=== PATIENT | male | born 1955 | race Caucasian/White ===

== ENCOUNTER 2016-10-23 16:21 | Inpatient (IN) | payer OTHER ==
[~2016-10-23] VITALS: Ht 170.2 cm; Wt 82.6 kg
[~2016-10-23 16:21] MED LIST: BENTYL20 M1 PO; BENZONATATE100 M1 PO; CELEXA40 M1 PO; CENTRUM CHEWAB1 EACH PO; CO Q-10200 MG PO; FLEXERIL10 MG PO; FLOMAX(MONOGRA0.4 MG PO; IBUPROFEN800 M1 PO; LOPID600 MG PO; MILK OF MA400 MG/52 PO; MIRALAX17 G1 PO; MOBIC 15MG15 MG PO; MOTRIN600 MG PO; NALTREXONE50 MG PO; NASONEX17 GM NASB; PERCOCET 325 MG1 TA2 PO; PERPHENAZINE2 M1 PO; PERPHENAZINE4 MG PO; PRAVASTATIN SOD20 M2 PO; PREDNISONE10 M2 PO; PRILOSEC OTC20 M1 PO; PROAIR HFA8.5 GM INH; PROTONIX40 M3 PO; SYNTHROID50 MCG PO; TYLENOL #31 TAB PO; VITAMIN D32000 UNIT PO; VITAMIN D3400 IU PO; ZOFRAN4 M2 PO
--- NOTE | 2016-10-23 16:36 | NUR ---
PT TO ER W/ FAMILY C/C 1 DAY HX OF CHILLS, BODY ACHES, VOMITING AND DIARRHEA. TEMP IN TRIAGE 100.8. MEDICATED WITH 975 MG TYLENOL PER STANDING ORDERS
--- NOTE | 2016-10-23 17:00 | ED GENERAL ADULT ---
History of Present Illness General Chief Complaint: Nausea, Vomiting, Diarrhea Stated Complaint: NVD, BODY ACHES Source: patient, family (, DAUGHTER) Exam Limitations: poor historian Allergies Coded Allergies: strawberry (Intermediate, RASH 08/28/16) Reconcile Medications Cholecalciferol (Vitamin D3) (Vitamin D3) 2,000 UNIT CAPSULE 1 TAB PO D SUPPLEMENT (Reported) Citalopram Hydrobromide (Celexa) 40 MG TABLET PAIN CONTROL (Reported) Folic Acid/Mv,Fe,Other Min (Centrum Chewable Tablet) 0.4 MG-18 MG-3,500 UNIT TAB.CHEW VITAMIN SUPPORT (Reported) Gemfibrozil (Lopid) 600 MG TABLET HIGH CHOLESTROL (Reported) Levothyroxine Sodium (Synthroid) 50 MCG TABLET THYROID PROBLEMS (Reported) NALTREXONE HCL (Naltrexone HCl) 50 MG TAB 1 TAB PO DAILY MENTAL HEALTH ( Reported) Omeprazole Magnesium (Prilosec Otc) 20 MG TABLET.DR 1 TAB PO DAILY GERD Perphenazine 2 MG TABLET 1.5 TAB PO QPM MENTAL HEALTH (Reported) Pravastatin Sodium 20 MG TABLET HIGH CHOLESTROL (Reported) Triage Note: PT TO ER W/ FAMILY C/C 1 DAY HX OF CHILLS, BODY ACHES, VOMITING AND DIARRHEA. TEMP IN TRIAGE 100.8. MEDICATED WITH 975 MG TYLENOL PER STANDING ORDERS Triage Nurses Notes Reviewed? yes HPI: THIS PATIENT IS A 61-YEAR-OLD MALE WITH PAST MEDICAL HISTORY INCLUDING HYPERTENSION, BIPOLAR DISORDER, AND SCHIZOAFFECTIVE DISORDER WITH A RECENT DIAGNOSIS OF DIABETES NOT CURRENTLY ON ANY vacation who presented to the emergency department today accompanied by his daughter and for evaluation of general malaise. They reported that his symptoms began last night with chills and vomiting. They were unable to quantify the amount of times the patient vomited. No blood in the vomitus. The patient reported that he has been having lower abdominal pain which she was unable to describe or rate it on a pain scale. He denied any radiation of the pain. The pain is intermittent. The patient's also reported that on the way to the emergency department he seemed to be struggling to breathe. The patient's daughter reported, "the last time this happened he had pneumonia." The patient's daughter recently was diagnosed with the flu. The patient denied any chest pain, urinary symptoms, or difficulty breathing. The patient is reporting associated nausea. The patient has not seen an city mail carrier, but is scheduled to see one for his recent diagnosis of diabetes. He is not currently on any medication. (TATIANA JEAN BAPTISTE,MAURICE) Vital Signs & Intake/Output Vital Signs & Intake/Output Vital Signs Date Time Temp Pulse Resp B/P Pulse O2 O2 Flow FiO2 Ox Delivery Rate 10/24 1644 98.2 59 20 126/78 92 Nasal 2.0L Cannula 10/24 1316 94 Nasal 2.0L Cannula 10/24 1200 98.1 60 18 108/72 96 Nasal 3.0L Cannula 10/24 1005 Nasal 3.0L Cannula 10/24 0800 98.6 60 16 112/74 94 Nasal 4.0L Cannula 10/24 0800 94 Nasal 4.0L Cannula 10/24 0400 96 Nasal 3.0L Cannula 10/24 0000 100.2 62 12 104/72 94 Nasal 4.0L Cannula 10/23 2323 84 20 90/60 Nasal 2.0L Cannula 10/23 2315 94 Nasal 4.0L Cannula 10/23 2301 74 20 100/68 93 Nasal 2.0L Cannula 10/23 2250 63 20 115/70 93 Nasal 2.0L Cannula 10/23 2250 99.6 62 20 141/74 94 Nasal 2.0L Cannula 10/23 2239 20 111/57 10/23 2230 49 15 10/23 2219 56 125/70 10/23 2213 75 86/60 10/23 2151 79 18 94/60 97 Nasal 2.0L Cannula 10/23 2141 83 20 89/57 98 Nasal 2.0L Cannula 10/23 2052 95 74/50 96 10/23 2021 80/60 10/23 195 86 18 93/62 95 Nasal 2.0L Cannula 10/23 1945 99.2 96 15 113/69 94 Nasal 2.0L Cannula 10/23 1845 87 15 94/65 95 Room Air Room Air ED Intake and Output 10/24 0000 10/23 1200 Intake Total 3000 Output Total 900 Balance 2100 Intake, IV 3000 Intake, Oral 0 Output, Urine 900 Patient 180 lb Weight Past History Travel History Traveled to [place] past 21 day No Medical History Any Pertinent Medical History? see below for history Neurological: TIA EENT: NONE Cardiovascular: hypertension, hyperlipidemia Respiratory: NONE Gastrointestinal: NONE Hepatic: NONE Renal: NONE Musculoskeletal: NONE Psychiatric: bipolar disease, depression, schizo affective disorder, MANIC DEPRESSIVE Endocrine: diabetes, hypopituitarism Blood Disorders: NONE Cancer(s): NONE AUDIT PARTNER/Reproductive: NONE History of MRSA: No History of VRE: No History of CDIFF: No Surgical History Surgical History: LIPOMA RESECTION Psychosocial History Who do you live with Family What is your primary language Romansh Tobacco Use: Quit >30 days ago Family History Hx Contributory? No (MAURICE SIMPSON PA-C) Review of Systems Review of Systems Constitutional: Reports: see HPI. EENTM: Reports: no symptoms. Respiratory: Reports: see HPI. Cardiovascular: Reports: no symptoms. GI: Reports: see HPI. Genitourinary: Reports: no symptoms. Musculoskeletal: Reports: no symptoms. Skin: Reports: no symptoms. Neurological/Psychological: Reports: no symptoms. All Other Systems: Reviewed and Negative (MAURICE SIMPSON PA-C) Physical Exam Physical Exam General Appearance: well developed/nourished, no apparent distress, alert, awake Comments: Well-developed well-nourished person in no acute distress HEENT: Normal EENT exam, head normocephalic, moist mucous membranes PERRLA bilaterally Neck: Supple, no lymphadenopathy Back: Normal inspection Cardiovascular: Regular rate and rhythm with no murmurs, rubs, or gallops Respiratory: Chest nontender. No respiratory distress. Breath sounds clear to auscultation bilaterally with no wheezes, rales, rhonchi Abdomen: Soft, nontender and nondistended with normoactive bowel sounds. No peritoneal signs. No rebound or guarding Extremity: Normal and equal pulses. Neuro: Alert oriented x3, cranial nerves II through XII grossly intact. Skin: No appreciable rash on exposed skin, skin is warm and dry. Psych: Mood and affect is normal Core Measures ACS in differential dx? Yes CVA/TIA Diagnosis: No Severe Sepsis Present: No Septic Shock Present: No (MAURICE SIMPSON PA-C) Progress Differential Diagnoses I considered the following diagnoses in my evaluation of the patient: [Influenza , viral syndrome, gastroenteritis, ACS, PE, pneumonia, sepsis] Diagnostic Imaging: Viewed by Me: Radiology Read, CT Scan. Discussed w/RAD: Radiology Read, CT Scan. Radiology Impression: PATIENT: BELLA LOPEZ PRESENT AGE: 61 PATIENT ACCOUNT NO: [id number] : 55 LOCATION: [facility] ORDERING PHYSICIAN: MAURICE SIMPSON PA-C SERVICE DATE: 10/23/16 EXAM TYPE: RAD - XRY-PORTABLE CHEST XRAY EXAMINATION: XR PORTABLE CHEST CLINICAL INFORMATION: Hypoxia. Evaluate for pneumonia. COMPARISON: Multiple priors, most recent chest radiograph dated 07/08/2016. TECHNIQUE: Portable AP semiupright view of the chest was obtained. FINDINGS: There is focal airspace opacification within the peripheral right lung base. The right upper lung and left lung are clear. There is no pneumothorax or pleural effusion. The cardiomediastinal silhouette is not enlarged. The visualized osseous structures are unremarkable. IMPRESSION: Focal airspace opacification within the peripheral right lung base, which could represent pneumonia in the appropriate clinical setting. DICTATED BY : SAMUEL DAVIS MD DATE/TIME DICTATED:10/23/161815 RAILROAD CAR LOADER: KVNG DATE/TIME TRANSCRIBED:10/23/161815 CONFIDENTIAL, DO NOT COPY WITHOUT APPROPRIATE AUTHORIZATION. <Electronically signed in Other Vendor System> SIGNED BY: SAMUEL DAVIS MD 10/23/161827, PATIENT: BELLA LOPEZ PRESENT AGE: 61 PATIENT ACCOUNT NO: [id number] : 55 LOCATION: [facility] ORDERING PHYSICIAN: MAURICE SIMPSON PA-C SERVICE DATE: 10/23/16 EXAM TYPE: CAT - CT HEAD WO IV CONTRAST EXAMINATION: CT HEAD WITHOUT CONTRAST CLINICAL INFORMATION: Status post fall. Evaluate for acute intracranial hemorrhage. COMPARISON: Noncontrast head CT 01/18/2015. TECHNIQUE: Contiguous axial imaging was performed from the skull base to vertex without intravenous administration of contrast. DLP: 529 mGy-cm. FINDINGS: No acute intracranial abnormality. No acute intracranial hemorrhage, mass or mass effect or abnormal extra-axial fluid collections. The density within the dural venous sinuses is within normal limits. The ventricles are normal in size, without hydrocephalus. There are no focal areas of hypoattenuation within a vascular distribution to suggest acute transcortical ischemia. The basilar cisterns are patent. No acute calvarial abnormality is identified. Soft tissues appear unremarkable. The imaged paranasal sinuses and mastoid air cells are well aerated. IMPRESSION: No acute intracranial abnormality. DICTATED BY: GEOVANNY HAMILTON MD DATE/TIME DICTATED:10/23/161915 RAILROAD CAR LOADER:KVNG DATE/TIME TRANSCRIBED:10/23/161915 CONFIDENTIAL, DO NOT COPY WITHOUT APPROPRIATE AUTHORIZATION. <Electronically signed in Other Vendor System> SIGNED BY: GEOVANNY HAMILTON MD 10/23/161937 Initial ED EKG: none Comments: THIS PATIENT WAS OFFICIALLY SIGNED OUT TO DR. FERRARI FOR ICU ADMISSION. (TATIANA JEAN BAPTISTE,MAURICE) Plan of Care: Orders Procedure Date/time Status ICU LAB BUNDLE 10/25 0500 Active CBC WITHOUT DIFFERENTIAL 10/25 0500 Active Heart Healthy Diet 10/24 B Active C.DIFFICILE 10/24 1456 Active RT: Evaluation 10/24 1005 Active LACTIC ACID 10/24 0500 Complete ICU LAB BUNDLE 10/24 0500 Complete CBC WITHOUT DIFFERENTIAL 10/24 0500 Complete CULTURE,URINE 10/24 0431 Active SPECIMEN TO BE OBTAINED 10/24 430 Active Lab Add-on Test 10/24 0415 Active TROPONIN LEVEL 10/24 0023 Complete EKG 10/24 0023 Active Wound Care/Dressing 10/24 000 Complete Weight 10/24 000 Complete VTE Mechanical Prophylaxis 10/24 8 Active Vital Signs 10/24 8 Active Turn and Reposition 10/24 8 Complete Drains/Tubes 10/24 8 Complete Teach/Educate 10/24 8 Active Skin Integrity Protocol 10/24 8 Complete Skin/Pressure Ulcer Assess (Sk 10/24 8 Active Precautions 10/24 8 Active Pain Treatment and Response 10/24 8 Active Nutritional Intake, Monitor 10/24 8 Active Isolation 10/24 8 Active CIWA 10/24 8 Complete Patient Care Conference 10/24 8 Active Activity/Ambulation 10/24 8 Active THERAPIST ORDERS 10/24 UNK Complete OXYGEN SETUP (GEN) 10/24 UNK Complete Transfer patient to 10/24 UNK Active Pathway - chart 10/23 2257 Active House Staff 10/23 2257 Active Patient Data 10/23 225 Active STREP PNEUMO URINARY ANTIGEN 10/23 225 Complete LEGIONELLA URINARY ANTIGEN 10/23 225 Complete VRE ACTIVE SURVIELLANCE 10/23 2233 Active ACTIVE SURVEILLANCE NARES 10/23 2233 Active EKG 10/23 2151 Active Patient Data 01/29 2124 Active Add-on Test (ER Only) 10/237 Active Saline Lock 10/23 2000 Active Misc Message 10/23 2000 Active ED Holding Orders 10/23 2000 Active Code Status 10/23 2000 Active Admit to inpatient 10/23 1999 Active OXYGEN SETUP (GEN) 10/23 190 Active Saline Lock 10/23 1900 Active Admit to inpatient 10/23 1900 Active Vital Signs 10/23 1900 Active Activity/Ambulation 10/23 190 Active Code Status 10/23 1900 Complete Intake & Output 10/23 1756 Active THYROID STIMULATING HORMONE 10/23 1713 Complete FREE T4 10/23 1713 Complete FingerStick- Glucose 10/23 1709 Active PARTIAL THROMBOPLASTIN TIME 10/23 1701 Complete PROTHROMBIN TIME 10/23 1701 Complete TRC EVALUATION (GEN) 10/23 UNK Complete VTE Mechanical Prophylaxis 10/23 UNK Active Vital Signs 10/23 UNK Complete Intake & Output 10/23 UNK Complete Current Medications Sig/Armando Start time Last Medication Dose Stop Time Status Admin Perphenazine 3 MG QPM 10/240 AC (Trilafon 2 MG Tablet) Ceftriaxone Sodium 1,000 MG 10/24 CAN (Rocephin) Azithromycin 500 MG ONCE ONE 10/23 1844 CAN (Zithromax) 10/23 1943 Dextrose/Water 250 ML (D5W) Laboratory Tests 10/24/16 0440: Anion Gap 8, Estimated GFR > 60, Glucose 84, Lactic Acid 1.0, Calcium 7.5 L, Phosphorus 2.7, Magnesium 1.4 L, Total Bilirubin 0.5, AST 65 H, ALT 71, Albumin 3.0 L, CBC w Diff NO MAN DIFF REQ, RBC 3.58 L, MCV 89.3, MCH 30.3, RDW 13.6, MPV 9.8, Gran % 69.9, Lymphocytes % 18.3 L, Monocytes % 8.8, Eosinophils % 2.5, Basophils % 0.5, Absolute Granulocytes 5.4, Absolute Lymphocytes 1.4, Absolute Monocytes 0.7 H, Absolute Eosinophils 0.2, Absolute Basophils 0, PUBS MCHC 33.9 10/24/16 0045: Troponin I < 0.01 10/23/16 1911: Urine Color YEL, Urine Clarity CLEAR, Urine pH 6.0, Ur Specific [place] 1.010, Urine Protein NEG, Urine Ketones NEG, Urine Nitrite NEG, Urine Bilirubin NEG, Urine Urobilinogen 0.2, Ur Leukocyte Esterase NEG, Ur Microscopic EXAM NOT REQUIRED, Urine Hemoglobin NEG, Urine Glucose NEG Microbiology 10/24 1450 STOOL: Clostridium difficile Toxin A & B - RECD 10/24 0030 UPPER RESP: Surveillance Culture - RECD 10/24 003 GI: Surveillance Culture - RECD 10/23 2258 STOOL: Clostridium difficile Toxin A & B - CAN Cancelled: SPECIMEN NOT RECEIVED IN LABORATORY 10/23 1910 URINE ROUT: Urine Culture - RECD 10/23 1910 URINE ROUT: Legionella Antigen - COMP 10/23 1910 URINE ROUT: Streptococcus pneumoniae Antigen (M - COMP Departure Departure Disposition: STILL A PATIENT Condition: Stable Clinical Impression Primary Impression: Pneumonia Qualifiers: Pneumonia type: due to unspecified organism Laterality: right Lung location: unspecified part of lung Qualified Code: J18.9 - Pneumonia, unspecified organism Secondary Impressions: Hypotension Qualifiers: Hypotension type: unspecified hypotension type Qualified Code: I95.9 - Hypotension, unspecified Hypoxia Referrals: TESSA DUONG MD (PCP/Family) Departure Forms: Customer Survey General Discharge Information Admission Note Spoke With: SARANYA GUILLEN,[facility] Documentation of Exam: Documentation of any treatments & extenuating circumstances including Concerns Regarding Discharge (functional status, medication knowledge or non-compliance, living conditions, etc.) that warrant an admission rather than observation: [ This patient is a 61-year-old male who presented to the emergency department today for evaluation of chills and vomiting. Upon admission to the emergency department, his blood glucose level was less than 50. This patient has been hypotensive here in the emergency department. Hypoxic in the 80s on room air. Pneumonia based on chest x-ray. This patient should be admitted to the emergency department for IV fluids, blood glucose monitoring, follow up blood cultures, IV antibiotics, endocrinology consultation, possible pulmonology consultation, trend labs, repeat chest x-ray, and close monitoring. This patient is a poor candidate for outpatient treatment. Premature discharge could prove medically harmful.] (TATIANA JEAN BAPTISTE,MAURICE) PA/EXCAVATOR OPERATOR Co-Sign Statement Statement: ED Attending supervision documentation- x I saw and evaluated the patient. I have also reviewed all the pertinent lab results and diagnostic results. I agree with the findings and the plan of care as documented in the PA's/EXCAVATOR OPERATOR's documentation. [] I have reviewed the ED Record and agree with the PA's/EXCAVATOR OPERATOR's documentation. [] Additions or exceptions (if any) to the PAs/EXCAVATOR OPERATOR's note and plan are summarized below: [] (CONRAD GUILLEN,ZOILA) PA/EXCAVATOR OPERATOR Co-Sign Statement Statement: ED Attending supervision documentation- [] I saw and evaluated the patient. I have also reviewed all the pertinent lab results and diagnostic results. I agree with the findings and the plan of care as documented in the PA's/EXCAVATOR OPERATOR's documentation. [X] I have reviewed the ED Record and agree with the PA's/EXCAVATOR OPERATOR's documentation. [] Additions or exceptions (if any) to the PAs/EXCAVATOR OPERATOR's note and plan are summarized below: [] (ARMIDA FERRARI MD) Critical Care Note Critical Care Note Critical Care Time: 30-74 min (MAURICE SIMPSON PA-C) as documented in the PA's/EXCAVATOR OPERATOR's documentation. [X] I have reviewed the ED Record and agree with the PA's/EXCAVATOR OPERATOR's documentation. [] Additions or exceptions (if any) to the PAs/EXCAVATOR OPERATOR's note and plan are summarized below: [] (ARMIDA FERRARI MD) Critical Care Note Critical Care Note Critical Care Time: 30-74 min (MAURICE SIMPSON PA-C)
[2016-10-23 17:27] LABS: ABSOLUTE BASOPHIL COUNT 0 /CUMM (0.0-0.2); ABSOLUTE EOSINOPHIL COUNT 0 /CUMM (0.0-0.7); ABSOLUTE GRANULOCYTE CT 8.5 /CUMM (1.4-6.5); ABSOLUTE LYMPH COUNT 0.4 /CUMM (1.2-3.4); ABSOLUTE MONOCYTE COUNT 0.2 /CUMM (0.10-0.60); BASOPHIL % 0 % (0.0-2.0); EOSINOPHIL % 0.5 % (0-5); HEMATOCRIT 40.4 % (42-52); MEAN CORPUSCULAR HGB 29.6 PG (27.0-31.0); MEAN CORPUSCULAR HGB CONC 33.3 G/DL (33.0-37.0); MEAN CORPUSCULAR VOLUME 88.7 FL (80.0-94.0); MEAN PLATELET VOLUME 9.1 FL (7.4-10.4); PLATELET COUNT 157 /CUMM (130-400); RBC DISTRIBUTION WIDTH 13.5 % (11.5-14.5); RED BLOOD CELL CT 4.56 /CUMM (4.70-6.10); WHITE BLOOD CELL COUNT 9.2 /CUMM (4.8-10.8)
[2016-10-23 17:29] LABS: GRANULOCYTE % 92.8 % (42.2-75.2)
--- NOTE | 2016-10-23 17:32 | NUR ---
PT'S BLOOD SUGAR <50; IV EST, BLOOD WORK DRAWN AND SENT TO LAB: SST, LAV, BLUE, MICHAUD TOPS. PT PROVIDED TWO APPLE JUICES (AWAKE AND ALERT TO SWALLOW WITHOUT ASPIRATING.) DEWEY SIMPSON AWARE AND PT MEDICATED WITH AN AMP OF DEXTROSE AND ZOFRAN. WILL CONTINUE TO MONITOR.
--- NOTE | 2016-10-23 17:34 | NUR ---
PT'S DAUGHTER AND WOULD LIKE TO BE CONTACTED WITH AN UPDATE OF PT'S CARE AT PHONE NUMBER: [phone] (KANIKA)
--- NOTE | 2016-10-23 17:36 | NUR ---
FLU SWAB OBTAINED AND SENT TO LAB.
--- NOTE | 2016-10-23 18:03 | NUR ---
XRAY AT BEDSIDE.
--- NOTE | 2016-10-23 18:14 | NUR ---
FAMILY UPDATED ON PLAN OF CARE, WAITING FOR REMAINING BLOOD WORK TO COME BACK AND RADIOLOGY RESULTS.
--- NOTE | 2016-10-23 18:18 | NUR ---
PT REQUESTING TO SPEAK WITH PROVIDER. PROVIDER AWARE AND PT INFORMED THAT PROVIDER WILL BE IN IN A COUPLE OF MINUTES/ SOON SHE CAN TO SPEAK WITH PT.
--- NOTE | 2016-10-23 18:28 | RADIOLOGY REPORT ---
EXAMINATION: XR PORTABLE CHEST CLINICAL INFORMATION: Hypoxia. Evaluate for pneumonia. COMPARISON: Multiple priors, most recent chest radiograph dated 07/08/2016. TECHNIQUE: Portable AP semiupright view of the chest was obtained. FINDINGS: There is focal airspace opacification within the peripheral right lung base. The right upper lung and left lung are clear. There is no pneumothorax or pleural effusion. The cardiomediastinal silhouette is not enlarged. The visualized osseous structures are unremarkable. IMPRESSION: Focal airspace opacification within the peripheral right lung base, which could represent pneumonia in the appropriate clinical setting.
--- NOTE | 2016-10-23 18:30 | NUR ---
DEWEY SIMPSON AT BEDSIDE TO DISCUSS POC.
--- NOTE | 2016-10-23 18:51 | NUR ---
PT TO CAT SCAN VIA STRETCHER NOW.
--- NOTE | 2016-10-23 19:38 | CT SCAN REPORT ---
EXAMINATION: CT HEAD WITHOUT CONTRAST CLINICAL INFORMATION: Status post fall. Evaluate for acute intracranial hemorrhage. COMPARISON: Noncontrast head CT 01/18/2015. TECHNIQUE: Contiguous axial imaging was performed from the skull base to vertex without intravenous administration of contrast. DLP: 529 mGy-cm. FINDINGS: No acute intracranial abnormality. No acute intracranial hemorrhage, mass or mass effect or abnormal extra-axial fluid collections. The density within the dural venous sinuses is within normal limits. The ventricles are normal in size, without hydrocephalus. There are no focal areas of hypoattenuation within a vascular distribution to suggest acute transcortical ischemia. The basilar cisterns are patent. No acute calvarial abnormality is identified. Soft tissues appear unremarkable. The imaged paranasal sinuses and mastoid air cells are well aerated. IMPRESSION: No acute intracranial abnormality.
--- NOTE | 2016-10-23 19:45 | NUR ---
PT MEDICATED WITH ZITHROMAX PER EMAR. PT PROVIDED BOXED LUNCH, OKAY PER PROVIDER FOR PT TO EAT. PT TOLERATING WELL. WILL CONTINUE TO MONITOR.
--- NOTE | 2016-10-23 20:30 | NUR ---
FAMILY AND PT INFORMED WAITING THAT POC IS FOR PT TO COMPLETE FOURTH LITER OF NS BOLUS AND DEPENDING ON BP READING AFTER THIS LITER, PT WILL THEN BE REASSESSED FOR EITHER ICU OR GEN MED.
--- NOTE | 2016-10-23 20:53 | NUR ---
MAURICE PALOMO NOTIFIED OF BLOOD PRESSURE OF 74/[address] THROUGH 4TH LITER OF IVF.
--- NOTE | 2016-10-23 20:53 | NUR ---
PT REMAINS AWAKE, ALERT AND ORIENTED. IN NO OVERT DISTRESS
--- NOTE | 2016-10-23 21:10 | NUR ---
HOUSE STAFF AT BEDSIDE FOR EVAL.
--- NOTE | 2016-10-23 21:41 | NUR ---
HOUSE STAFF AT BEDSIDE FOR CENTRAL LINE PLACEMENT.
[2016-10-23 21:57] LABS: PTT 32 SEC (25-37)
--- NOTE | 2016-10-23 22:25 | NUR ---
PT TRANSPORTED TO CAT SCAN WITH THIS RN ON LACE STRIPPER. PT NOTED TO BE BRADYCARDIC WITH SINUS NERI 49-55. SERO FROM HOUSE STAFF PAGED AND INFORMED. SERO CAME TO EVALUATE PT WHO REPORTS FEELING OKAY AND OFFERS NO COMPLAINTS. PER SERO, LEVO GTT HELD AT THIS TIME. BP STABLE. WILL CONTINUE TO MONITOR.
--- NOTE | 2016-10-23 22:41 | History & Physical ---
JULIANA GUILLEN,[facility] 10/23/16 0150: General Information and HPI MD Statement: I have seen and personally examined BELLA LOPEZ and documented this H& P. The patient is a 61 year old M who presented with a patient stated chief complaint of [chills, shortness of breath]. Source of Information: patient, family, old records Exam Limitations: no limitations History of Present Illness: This is a 61-year-old gentleman with a past medical history significant for diabetes, hypertension, hypothyroidism, hyperlipidemia, major depressive disorder, previous history of alcohol use has been sober now for 5 years that presents to the emergency room today with his family with a chief complaint of chills, nausea, vomiting and diarrhea for the past 12 hours. Patient states that his daughter was diagnosed with the flu about 10 days ago and this morning he exhibited symptoms of having chills, muscle aches and pains, nausea, vomiting. Denies any chest pain, recent illnesses or any travel. It should be noted that in June 2016 patient was admitted to [facility] for aspirating a foreign object which was not identified by endoscopy. While the patient was in the emergency room he was found to be hypotensive with a systolic blood pressure in the 70s. He was given 4 L bolus of normal saline, eventually a central line was put in and levophed was initiated and his blood pressure did improve to systolic of 120s. He did also complain of lower abdominal pain and diarrhea which was nonbloody. Allergies/Medications Allergies: Coded Allergies: strawberry (Intermediate, RASH 08/28/16) Home Med list Cholecalciferol (Vitamin D3) (Vitamin D3) 2,000 UNIT CAPSULE 1 TAB PO D SUPPLEMENT (Reported) Citalopram Hydrobromide (Celexa) 40 MG TABLET PAIN CONTROL (Reported) Folic Acid/Mv,Fe,Other Min (Centrum Chewable Tablet) 0.4 MG-18 MG-3,500 UNIT TAB.CHEW VITAMIN SUPPORT (Reported) Gemfibrozil (Lopid) 600 MG TABLET HIGH CHOLESTROL (Reported) Levothyroxine Sodium (Synthroid) 50 MCG TABLET THYROID PROBLEMS (Reported) NALTREXONE HCL (Naltrexone HCl) 50 MG TAB 1 TAB PO DAILY MENTAL HEALTH ( Reported) Omeprazole Magnesium (Prilosec Otc) 20 MG TABLET.DR 1 TAB PO DAILY GERD Perphenazine 2 MG TABLET 1.5 TAB PO QPM MENTAL HEALTH (Reported) Pravastatin Sodium 20 MG TABLET HIGH CHOLESTROL (Reported) Past History Travel History Traveled to [place] past 21 day No Medical History Neurological: TIA EENT: NONE Cardiovascular: hypertension, hyperlipidemia Respiratory: NONE Gastrointestinal: NONE Hepatic: NONE Renal: NONE Musculoskeletal: NONE Psychiatric: bipolar disease, depression, schizo affective disorder, MANIC DEPRESSIVE Endocrine: diabetes, hypopituitarism Blood Disorders: NONE Cancer(s): NONE 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 Psychosocial History Where do you live? Home Who Do You Live With? spouse, child Services at Home: None Primary Language: Gibraltarian Smoking Status: Former Smoker ETOH Use: former hx of alcohol use Functional Ability ADLs Independent: dressing, eating, toileting, bathing. Ambulation: independent IADLs Independent: shopping, housework, finances, food prep, telephone, transportation , medication admin. Employment History Employment Disability Review of Systems Review of Systems Constitutional: Reports: see HPI. Exam & Diagnostic Data Last 24 Hrs of Vital Signs/I&O Vital Signs Date Time Temp Pulse Resp B/P Pulse O2 O2 Flow FiO2 Ox Delivery Rate 10/23 2238 20 111/57 10/23 2229 49 15 10/23 2218 56 125/70 10/23 2212 75 86/60 10/23 2151 79 18 94/60 97 Nasal 2.0L Cannula 10/23 2140 83 20 89/57 98 Nasal 2.0L Cannula 10/23 2052 95 74/50 96 10/23 2021 80/60 10/23 1955 86 18 93/62 95 Nasal 2.0L Cannula 10/23 194 99.2 96 15 113/69 94 Nasal 2.0L Cannula 10/23 1845 87 15 94/65 95 Room Air Room Air 10/23 1838 99.8 92 20 89/60 95 Nasal 2.0L Cannula 10/23 1821 88 15 93/58 97 Nasal 2.0L Cannula 10/23 1753 95 Room Air 2.0L 10/23 174 96 18 93 Nasal 2.0L Cannula 10/23 1743 101.2 18 91/52 90 Room Air 10/23 1649 100.8 10/23 1634 100.8 110 19 102/73 93 Room Air Physical Exam General Appearance Alert, Oriented X3, Cooperative Skin No Rashes, No Breakdown HEENT Atraumatic, PERRLA, EOMI Neck Supple, No JVD Cardiovascular Regular Rate, Normal S1, Normal S2, No Murmurs Lungs Clear to Auscultation, Normal Air Movement Abdomen Normal Bowel Sounds, Soft, No Tenderness Neurological Normal Speech, Strength at 5/5 X4 Ext, Normal Tone, Sensation Intact, Cranial Nerves 3-12 NL Extremities No Clubbing, No Cyanosis, No Edema Diagnostic Data EKG Results Rate 78, RI 184, QRS 92, QTC 456 Sinus rhythm, no change since previous tracing CXR Results IMPRESSION: Focal airspace opacification within the peripheral right lung base, which could represent pneumonia in the appropriate clinical setting. Other Results CAT scan of the head IMPRESSION: No acute intracranial abnormality. Assessment/Plan Assessment: In summary, 61-year-old gentleman with a recent sick contact that had flu, presents today with chills, shortness of breath, nausea, vomiting, one episode of diarrhea. Found to have an opacity at the right lung base consistent with pneumonia, hypotensive despite 4 L of normal saline bolus, subsequently given levophed through a central line with elevation of blood pressure in the 120s being admitted for sepsis secondary to his pneumonia. Assessment- 1. Septic shock 2/2 PNA 2. Hypotension 3. Vomiting and Diarrhea 4. Depression 5. HLD 6. Hpothyroidism 7. Bioplar disroder Plan- Admit to the ICU IV fluid resuscitation CAT scan of the chest and abdomen and pelvis Central line with levo fed starting at 5 mics an hour, maintain CVP of 12-14 Ward culture (blood culture, sputum culture, urinalysis and culture, urinary strep and Legionella antigens) We'll place on ceftriaxone and azithromycin, there is a concern for aspiration Stool culture Zofran for nausea PRN TRC evaluation and nebulizers treatment Continue all other home meds Heart healthy diet DVT prophylaxis with heparin Full code As Ranked By This Provider Problem List: 1. Hypotension Qualifiers Hypotension type: unspecified hypotension type Qualified Code: I95.9 - Hypotension, unspecified 2. Hypertension 3. Hypoxia 4. Pneumonia Qualifiers Pneumonia type: due to unspecified organism Laterality: right Lung location: unspecified part of lung Qualified Code: J18.9 - Pneumonia, unspecified organism 5. Gastroenteritis 6. Abdominal pain Core Measures/Miscellaneous Acute Coronary Syndrome ACS Diagnosis: No Cerebrovascular Accident CVA/TIA Diagnosis: No Congestive Heart Failure CHF Diagnosis: No Venous Thromboembolism VTE Risk Factors: Age > 40, Smoking VTE Prophylaxis Ordered Inpt: Pharm- Heparin No Mech VTE prophylaxis d/t: No contraindications No VTE Pharm Prophylaxis d/t: No contraindications VTE Diagnosis: No VTE Type: NONE VTE Confirmed by (Test): NONE Severe Sepsis Severe Sepsis Present: No Septic Shock Septic Shock Present: No Miscellaneous Documentation Attending Case Discussed With: ELIA BEAVER [facility] Primary Care Physician: TESSA DUONG MD Patient sees these Specialists Dr. Duong Level of Patient Care: Critical Care (CRI) Resident Review Statement Resident Statement: examined this patient, discussed with video intern MARIJA BEAVER MD 10/23/16 2256: Attending MD Review Statement Attending Statement Attending MD Statement: examined this patient, discuss w/resident/PA/POMPOM MAKER, agreed w/resident/PA/POMPOM MAKER, discussed with family Attending Assessment/Plan: 61 yo M with h/o HTN, T2DM, bipolar disorder, TIA, hypothyroidism, bradycardia in the past, major depression with psychotic features, last admitted to [facility] (Jun 2016) for foreign body aspiration, now pw chills, nausea, vomiting and nonbloody diarrhea since this morning. RLQ abdominal pain+, fever+. Denies eating outside food. Sick contact + (daughter with flu). reports that patient may have 'passed out' this AM, although he was unclear about it. Vitals: Tmax 101.2, HR 90-110, BP 102/73 --> 89/60 after 4 L NS, sats 94% on 2L. Exam: dry mucous membranes, Skin warm and dry, good capillary refill. Chest bibasilar crackles, Heart S1S2 regular, Abd soft, distended, tender right lower quadrant, BS+. Extremities no edema. Labs: WBC 9.2, bands 6, lactic acid 1.4, trop neg, UA clear. CXR: Focal airspace opacification right lung base, CT head neg, CT CAP: bibasilar atelectasis, nephrolithiasis. EKG: SR. Echo (2010): EF 55 -60%. 1. Hypoxia, severe sepsis with septic shock requiring pressors 2/2 community acquired pneumonia, although aspiration cannot be ruled out. TRC nebs, panculture, urine legionella and strep antigen, flu swab neg. Passed bedside swallow. Continue IV ceftriaxone and azithro for now. Patient remained hypotensive despite 4 L NS. Right IJ line placed and levophed initiated, titrate based on BP to keep MAP > 65. Continue maintenance IV fluids. CRCU consult in AM. Check stool studies and Cdiff if diarrhea persists. Check another EKG and troponin. Check TSH and free T4. Monitor bradycardia. 2. T2DM not on meds. Monitor accucheks. 3. Continue home meds including citalopram, perphenazine, gemfibrozil, pravastatin and levothyroxine. GI ppx - IV PPI. DVT ppx Lovenox. Full code. TTS > 45 mins
--- NOTE | 2016-10-23 22:43 | NUR ---
BED ASSIGNED 110-1
--- NOTE | 2016-10-23 23:00 | NUR ---
REPORT GIVEN TO SUJATA KLINE.
--- NOTE | 2016-10-23 23:10 | NUR ---
PT HAD BOWEL MOVEMENT OF SOFT BROWN STOOL. GUAIAC NEGATIVE.
--- NOTE | 2016-10-23 23:10 | Proc Note Internal Medicine ---
JULIANA GUILLEN,ENIO 10/23/16 2306: Medicine Procedure Procedure Date: 10/23/16 Medical Procedure(s): central venous cath place Pre-Operative Diagnosis: SEPSIS HYPOTENSION Post-Operative Diagnosis: SAME Estimated Blood Loss: scant Anesthesia: none Procedure Findings: Informed consent was obtained from the patient regarding the procedure. Risks and benefits of the procedure were explained extensively, he wished to proceed. First, a timeout was obtained, patient identifying data was checked and verified by members of the team and by myself; after the proper patient and procedure and procedural site was identified, we proceeded. The surgical area was cleaned with chlorhexidine scrub. Patient was draped in sterile fashion. Using ultrasound probe, the right internal jugular vein was isolated. 5 cc of local 1% lidocaine was used to numb the skin. Sidelinger technique used. Using a syringe the right IJ was punctured under ultrasound guidance. The syringe was again confirmed by the ultrasound. Over the syringe, guidewire was placed as a syringe was removed. Skin dilator was placed over the guidewire, a small incision was made to advance the dilator. The dilator was then removed. The 3 ports of the central line were flushed to make sure that all 3 ports were working appropriately. Over the guidewire, the central line was placed and advanced up to 15 cm. The central line was then secured by 4 anchor sutures. A Biopatch was applied. 3 hubs were applied to the central line and were flushed. A dry sterile Tegaderm was applied. Blood loss was scant, the patient handled the procedure extremely well. A CXR confirmed appropriate line placement. Dr. Saab was present during the procedure in its entiriety. SARANYA GUILLEN, [facility] 10/23/16 2310: Addendum Note Addendum Septic shock requiring pressors. Consent obtained. INR 1.14. Procedure performed without any complications. Patient tolerated the procedure well. Placement of right IJ confirmed.
--- NOTE | 2016-10-23 23:14 | CT SCAN REPORT ---
EXAMINATION: CT CHEST, ABDOMEN AND PELVIS WITHOUT CONTRAST CLINICAL INFORMATION: Shortness of breath and hypotension. Right lower quadrant abdominal pain and left lower quadrant tenderness. COMPARISON: CT abdomen and pelvis without contrast 11/29/2015. TECHNIQUE: Multidetector volumetric CT imaging of the chest, abdomen and pelvis was performed without intravenous contrast. Additional 2-D coronal and sagittal reformatted images and axial 3-D maximum intensity projection MIP images of the chest were generated on the acquisition workstation. DLP: 727 mGy-cm. FINDINGS: CHEST: THYROID: Unremarkable. LUNGS/AIRWAYS: Evaluation of the lung parenchyma demonstrates minimal dependent right basilar subsegmental atelectasis. No suspicious pulmonary nodules or masses are identified. There is no focal airspace consolidation to suggest infection. The central airways are patent, without endobronchial obstructing lesions. HEART/VESSELS: Variant anatomy of the thoracic aorta, characterized by a right-sided aortic arch. The thoracic aorta and main pulmonary artery are normal in caliber. Normal heart size, without significant pericardial effusion. MEDIASTINUM/LYMPHATICS: No significant mediastinal, hilar or axillary adenopathy. PLEURA: No pleural effusions or pneumothoraces. CHEST WALL: Unremarkable. ABDOMEN AND PELVIS: Limited evaluation of the solid abdominal viscera in the absence of intravenous contrast. LIVER, GALLBLADDER, AND BILIARY TREE: The liver is normal in size, shape, and attenuation. There is a circumscribed hypoattenuating lesion within the right hepatic lobe measuring 2.1 cm and 3 Hounsfield units. This likely reflects a small hepatic cyst. There is an additional hypoattenuating lesion within the left hepatic lobe measuring approximately 0.9 cm, too small to further characterize. This could also reflect a small hepatic cyst. No contour deforming hepatic lesions are identified and there is no appreciable intrahepatic or extrahepatic biliary ductal dilatation. The gallbladder is physiologically distended but otherwise unremarkable without gallstones, gallbladder wall thickening or pericholecystic inflammatory changes. PANCREAS: Unremarkable. SPLEEN: Unremarkable. ADRENAL GLANDS: Unremarkable. KIDNEYS AND URETERS: Evaluation of the bilateral kidneys and renal collecting systems is notable for nephrolithiasis of the bilateral kidneys. Specifically, there is a 4 mm nonobstructing stone within the upper pole of the left kidney. A 3 mm nonobstructing stone is identified within the midpole of the left kidney. Within the lower pole of the right kidney there is a punctate 1 mm nonobstructing stone. No ureteral stones are identified and there is no hydroureteronephrosis of either kidney or renal collecting system. There is nonspecific and lateral perinephric stranding. No perinephric fluid collections. BLADDER: Unremarkable. GASTROINTESTINAL TRACT: Normal anatomic orientation of the stomach relative to the duodenum. Normal caliber of abdominal and pelvic bowel loops, without evidence of obstruction or ileus. No circumferential bowel wall thickening with surrounding inflammatory changes to suggest an underlying infectious or inflammatory enterocolitis. Normal-appearing appendix within the right lower quadrant of the abdomen. Scattered colonic diverticulosis, notably involving the sigmoid colon, without secondary signs of acute diverticulitis. No organizing intra-abdominal fluid collections or free intraperitoneal air. ABDOMINAL WALL: No significant hernia is appreciated. LYMPH NODES: No significant abdominal or pelvic adenopathy. VASCULAR: Normal course and caliber of the abdominal aorta and its branching vessels, without aneurysmal dilatation. Limited evaluation for vascular patency in the absence of intravenous contrast. PELVIC VISCERA: Unremarkable. OSSEOUS STRUCTURES: No acute osseous abnormality. Normal alignment of the imaged thoracolumbar spine. No destructive osseous lesions are identified. IMPRESSION: 1. Minimal dependent bibasilar atelectasis. Otherwise, no acute findings within the chest. No focal airspace consolidation to suggest infection. 2. Variant anatomy of the thoracic aorta, characterized by a right-sided aortic arch. 3. Nephrolithiasis of the bilateral kidneys, as detailed above. No ureteral or bladder stones and no hydronephrosis of either kidney. Of note, there is mild bilateral perinephric stranding. This finding is entirely nonspecific. It could reflect an underlying infectious or inflammatory process of the bilateral kidneys such as an ascending urinary tract infection. Limited evaluation for pyelonephritis given lack of intravenous contrast. However, bilateral pyelonephritis is rare. Correlate with urinalysis and urine culture. 4. Scattered colonic diverticulosis, without secondary signs of acute diverticulitis. 5. Normal-appearing appendix within the right lower quadrant of the abdomen.
--- NOTE | 2016-10-23 23:15 | NUR ---
RECIEVED PT FROM ER. A/OX3 HURTADO. SBP 90-100'S. NSR 60-70'S. RIJ TLC IN PLACE. LEVOPHED GTT ON HOLD PER ER. IVF STARTED AT 150ML/HR VIA PERIPHERAL LINE. AWAITING XRAY CONFIRMATION ON CENTRAL LINE PLACEMENT. NC INCREASED TO 4L O2 SAT 94% LUNGS CLEAR. NO COUGH. H/H DIET. PT HAS BEEN USING URINAL. SKIN INTACT. FAMILY AT BEDSIDE
[2016-10-24] VITALS: BP 104/72
--- NOTE | 2016-10-24 | NUR ---
PT COMPLAINING OF RIJ TLC, PAIN AND HEADACHE. MD WOO MADE AWARE. PO TYENOLOL GIVEN. WILL CONT TO MONITOR
--- NOTE | 2016-10-24 00:16 | RADIOLOGY REPORT ---
EXAMINATION: CHEST 1 VIEW CLINICAL INFORMATION: Right central line placement. COMPARISON: 10/23/2016. TECHNIQUE: An AP view of the chest is provided. FINDINGS: The cardiac silhouette is not enlarged. A right central venous line is in place. The tip overlies near the confluence of the right internal jugular vein and subclavian vein. The mediastinal and hilar contours are unremarkable. There are neither pleural effusions nor pneumothoraces. There are no consolidations. The osseous structures are unremarkable. IMPRESSION: No evidence for acute disease. Right central venous line in place.
--- NOTE | 2016-10-24 00:22 | Admission Certification ---
Admission Certification Certification Statement - As attending physician, I certify that at the time of - admission, based on clinical presentation, severity of - symptoms, need for further diagnostic testing and - therapeutic interventions, and risk of adverse outcomes - without in-hospital treatment, in my clinical assessment, - this patient requires an acute hospital stay for a minimum - of two nights or longer. I have also considered psychsocial - factors such as support system, advanced age, financial - issues, cognitive issues, and failed out-patient treatments, - past re-admission history, safety of patient, and lack of - compliance as applicable. Specific rationale supporting this admission is: Septic shock, community acquired pneumonia.
[2016-10-24 05:32] LABS: ABSOLUTE BASOPHIL COUNT 0 /CUMM (0.0-0.2); ABSOLUTE EOSINOPHIL COUNT 0.2 /CUMM (0.0-0.7); ABSOLUTE GRANULOCYTE CT 5.4 /CUMM (1.4-6.5); ABSOLUTE LYMPH COUNT 1.4 /CUMM (1.2-3.4); ABSOLUTE MONOCYTE COUNT 0.7 /CUMM (0.10-0.60)
[2016-10-24 05:56] LABS: BASOPHIL % 0.5 % (0.0-2.0); EOSINOPHIL % 2.5 % (0-5); GRANULOCYTE % 69.9 % (42.2-75.2); MEAN CORPUSCULAR HGB 30.3 PG (27.0-31.0); MEAN CORPUSCULAR HGB CONC 33.9 G/DL (33.0-37.0); MEAN CORPUSCULAR VOLUME 89.3 FL (80.0-94.0); MEAN PLATELET VOLUME 9.8 FL (7.4-10.4); PLATELET COUNT 136 /CUMM (130-400); RBC DISTRIBUTION WIDTH 13.6 % (11.5-14.5); RED BLOOD CELL CT 3.58 /CUMM (4.70-6.10); WHITE BLOOD CELL COUNT 7.7 /CUMM (4.8-10.8)
[2016-10-24 08:00] VITALS: BP 112/74
--- NOTE | 2016-10-24 08:51 | Cons- CRCU ---
ARVIND GUILLEN,AMILCAR 10/24/16 0850: General Information and HPI Consulting Request Date of Consult: 10/24/16 Requested By: claudia History of Present Illness: This is a 61-year-old gentleman with a past medical history significant for diabetes, hypertension, hypothyroidism, hyperlipidemia, major depressive disorder, previous history of alcohol use has been sober now for 5 years that presents to the emergency room today with his family with a chief complaint of chills, nausea, vomiting and diarrhea for the past 12 hours. Patient states that his daughter was diagnosed with the flu about 10 days ago and this morning he exhibited symptoms of having chills, muscle aches and pains, nausea, vomiting. Denies any chest pain, recent illnesses or any travel. It should be noted that in June 2016 patient was admitted to [facility] for aspirating a foreign object which was not identified by endoscopy. While the patient was in the emergency room he was found to be hypotensive with a systolic blood pressure in the 70s. He was given 4 L bolus of normal saline, eventually a central line was put in and levophed was initiated and his blood pressure did improve to systolic of 120s. He did also complain of lower abdominal pain and diarrhea which was nonbloody. Allergies/Medications Allergies: Coded Allergies: strawberry (Intermediate, RASH 08/28/16) Home Med List: Cholecalciferol (Vitamin D3) (Vitamin D3) 2,000 UNIT CAPSULE 1 TAB PO D SUPPLEMENT (Reported) Citalopram Hydrobromide (Celexa) 40 MG TABLET PAIN CONTROL (Reported) Folic Acid/Mv,Fe,Other Min (Centrum Chewable Tablet) 0.4 MG-18 MG-3,500 UNIT TAB.CHEW VITAMIN SUPPORT (Reported) Gemfibrozil (Lopid) 600 MG TABLET HIGH CHOLESTROL (Reported) Levothyroxine Sodium (Synthroid) 50 MCG TABLET THYROID PROBLEMS (Reported) NALTREXONE HCL (Naltrexone HCl) 50 MG TAB 1 TAB PO DAILY MENTAL HEALTH ( Reported) Omeprazole Magnesium (Prilosec Otc) 20 MG TABLET.DR 1 TAB PO DAILY GERD Perphenazine 2 MG TABLET 1.5 TAB PO QPM MENTAL HEALTH (Reported) Pravastatin Sodium 20 MG TABLET HIGH CHOLESTROL (Reported) Review of Systems Review of Systems Constitutional: Denies: chills, fever, weakness. EENTM: Reports: no symptoms. Cardiovascular: Denies: chest pain, palpitations. Respiratory: Denies: cough, short of breath. GI: Reports: diarrhea. Denies: melena, nausea. Genitourinary: Reports: no symptoms. Musculoskeletal: Reports: no symptoms. Skin: Reports: no symptoms. 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 Psychosocial History Where Do You Live? Home Who Do You Live With? spouse, child Services at Home: None Primary Language: Turkish Smoking Status: Former Smoker ETOH Use: former hx of alcohol use Functional Ability ADLs Independent: dressing, eating, toileting, bathing. Ambulation: independent IADLs Independent: shopping, housework, finances, food prep, telephone, transportation , medication admin. Employment History Employment: Disability ECHO Results (as available) Date of last Echo 09/01/10 EF% 60 Exam & Diagnostic Data Last 24 Hrs of Vital Signs/I&O Vital Signs Date Time Temp Pulse Resp B/P Pulse O2 O2 Flow FiO2 Ox Delivery Rate 10/24 1644 98.2 59 20 126/78 92 Nasal 2.0L Cannula 10/24 1620 92 Nasal 2.0L Cannula 10/24 1316 94 Nasal 2.0L Cannula 10/24 1200 98.1 60 18 108/72 96 Nasal 3.0L Cannula 10/24 1005 Nasal 3.0L Cannula 10/24 0800 98.6 60 16 112/74 94 Nasal 4.0L Cannula 10/24 0800 94 Nasal 4.0L Cannula 10/24 0400 96 Nasal 3.0L Cannula 10/24 0000 100.2 62 12 104/72 94 Nasal 4.0L Cannula 10/23 2323 84 20 90/60 Nasal 2.0L Cannula 10/23 2315 94 Nasal 4.0L Cannula 10/23 2301 74 20 100/68 93 Nasal 2.0L Cannula 01/29 2250 63 20 115/70 93 Nasal 2.0L Cannula 10/23 2249 99.6 62 20 141/74 94 Nasal 2.0L Cannula 10/23 2238 20 111/57 10/23 2229 49 15 10/23 2218 56 125/70 10/23 2212 75 86/60 10/231 79 18 94/60 97 Nasal 2.0L Cannula 10/23 2140 83 20 89/57 98 Nasal 2.0L Cannula 10/23 2052 95 74/50 96 10/23 2021 80/60 10/23 195 86 18 93/62 95 Nasal 2.0L Cannula 10/23 1944 99.2 96 15 113/69 94 Nasal 2.0L Cannula Intake & Output 10/24 1600 10/24 0800 10/24 0000 Intake Total 1680 1367 3000 Output Total 300 800 900 Balance 3891 392 3030 Intake, IV 3205 606 7173 Intake, Oral 480 400 0 Number 2 0 Bowel Movements Output, Urine 300 800 900 Patient 82.611 kg 81.647 kg Weight Physical Exam General Appearance: no apparent distress, alert, awake Head: atraumatic, normal appearance Eyes: Bilateral: normal appearance, PERRL, EOMI. Ears, Nose, Throat: normal pharynx, normal ENT inspection Neck: supple Respiratory: normal breath sounds, chest non-tender Cardiovascular: regular rate/rhythm Gastrointestinal: soft, non-tender Extremities: normal inspection Last 48 Hrs of Labs/Kendall: Laboratory Tests 10/24/16 0440: Anion Gap 8, Estimated GFR > 60, Glucose 84, Lactic Acid 1.0, Calcium 7.5 L, Phosphorus 2.7, Magnesium 1.4 L, Total Bilirubin 0.5, AST 65 H, ALT 71, Albumin 3.0 L, CBC w Diff NO MAN DIFF REQ, RBC 3.58 L, MCV 89.3, MCH 30.3, RDW 13.6, MPV 9.8, Gran % 69.9, Lymphocytes % 18.3 L, Monocytes % 8.8, Eosinophils % 2.5, Basophils % 0.5, Absolute Granulocytes 5.4, Absolute Lymphocytes 1.4, Absolute Monocytes 0.7 H, Absolute Eosinophils 0.2, Absolute Basophils 0, PUBS MCHC 33.9 10/24/16 0045: Troponin I < 0.01 10/23/161910: Urine Color YEL, Urine Clarity CLEAR, Urine pH 6.0, Ur Specific [place] 1.010, Urine Protein NEG, Urine Ketones NEG, Urine Nitrite NEG, Urine Bilirubin NEG, Urine Urobilinogen 0.2, Ur Leukocyte Esterase NEG, Ur Microscopic EXAM NOT REQUIRED, Urine Hemoglobin NEG, Urine Glucose NEG 10/23/16 1713: Anion Gap 11, Estimated GFR > 60, BUN/Creatinine Ratio 15.0, Glucose 120 H, Lactic Acid 1.4, Calcium 9.0, Total Bilirubin 0.9, AST 32, ALT 48, Alkaline Phosphatase 64, Troponin I < 0.01, Total Protein 7.2, Albumin 4.1, Globulin 3.1, Albumin/Globulin Ratio 1.3, TSH 1.040, Free T4 1.36, CBC w Diff MAN DIFF ORDERED , RBC 4.56 L, MCV 88.7, MCH 29.6, RDW 13.5, MPV 9.1, Gran % 92.8 H, Lymphocytes % 4.4 L, Monocytes % 2.3, Eosinophils % 0.5, Basophils % 0 L, Absolute Granulocytes 8.5 H, Segmented Neutrophils 83 H, Band Neutrophils 6 H , Absolute Lymphocytes 0.4 L, Lymphocytes 6 L, Monocytes 3, Absolute Monocytes 0.2, Eosinophils 1, Absolute Eosinophils 0, Absolute Basophils 0, Metamyelocytes 1, Platelet Estimate ADEQUATE, Normocytic RBCs VERIFIED, Normochromic RBCs VERIFIED, PUBS MCHC 33.3 10/23/16 170: PT 12.0, INR 1.14, APTT 32 Microbiology 10/23 1910 URINE ROUT: Legionella Antigen - COMP 10/23 1910 URINE ROUT: Streptococcus pneumoniae Antigen (M - COMP Assessment/Plan Impression/Plan: This is a 60-year-old male with past medical history of diabetes, hypertension, hyperlipidemia, hypothyroidism, with recent sick contact of flu who came in with chief complaint of chills, shortness of breath, nausea, vomiting, and diarrhea. In ED chest x-ray showed opacity in right lung base, he was hypotensive despite 4 L normal saline, had central line placed, given levo fed and admitted to ICU for further management and workup. PLAN Respiratory: Stable on room air. Continue to monitor ID: Patient came in with white count 9.2, today at 7.7. He was given one dose of ceftriaxone and azithromycin for possible aspiration pneumonia as chest x-ray indicated right lower lobe opacity. However, CT of chest revealed no acute findings other than minimal dependent bibasilar atelectasis. No focal airspace consolidation, not suggestive of infection. Urine not indicative of infxn. He has been afebrile. Patient does complain of nausea, vomiting, diarrhea; likely viral gastroenteral process * Rapid flu negative. * Follow-up strep * Follow-up Legionella antigen. * Follow-up sputum culture * Follow blood culture * Follow-up urine culture * DC all antibiotics and monitor clinically CVS: Hypotension: Patient had pressures in the 70s and 80s on admission. He was given 4 L of did not seem to initially improve. Central line in place levo fed started pressure subsequently climbed up to 120s. Patient did not require pressors by the time he left the ED to come to the ICU. This a.m. anxious pressures continued to be well into the one teens. No pressors required. We pulled out central line. * Continue to monitor off pressors * Continued hydration; reevaluate in a.m. Heme oncology: Stable. Continue to monitor Musculoskeletal: Stable. Continue to monitor GI: * Vomiting and diarrhea: Etiology of patient's hypotension likely secondary to septic shock versus hypovolemic shock secondary to diarrhea and poor by mouth intake. Neuro: * Bipolar, depression. Continue home meds. Endo: * Hypothyroidism: Continue home meds. Full code Regular diet Chem DVT prophylaxis Consult Acknowledgment - Thank you for your consult request. CHANG DEUTSCH MD 10/24/16 1132: Assessment/Plan Other Findings/Comments: Chang Salas M.D. have examined this patient, reviewed available EMR data, personally reviewed images, discussed with resident/PA/ROAD ROLLER OPERATOR HOT MIX, discussed management plan with housestaff and nursing staff, discussed managment plan all of healthcare providers, discussed management plan with patient and/or family, agreed with resident/PA/ROAD ROLLER OPERATOR HOT MIX. The past history and parts of the chart have been autopopulated. Impression 61-year-old man with shock likely hypovolemic in nature. There is no obvious source of infection other than likely viral gastroenteritis. He has been off pressors and now hemodynamically stable after adequate fluid resuscitation. Feeling better overall. There is no evidence of pneumonia or urinary tract infection. Plan -Monitor off antibiotics -Follow up will cultures -Monitor white count and fevers -Off levo fed and monitor for the next few hours if does well remove central line and transferred to [facility] -DVT prophylaxis at all times Total time spent 45 minutes Consult Acknowledgment - Thank you for your consult request.
[2016-10-24 12:00] VITALS: BP 108/72
[2016-10-24 16:44] VITALS: BP 126/78
[2016-10-25 00:33] VITALS: BP 122/80
[2016-10-25 08:05] VITALS: BP 128/78
[2016-10-25 08:07] LABS: ABSOLUTE BASOPHIL COUNT 0.1 /CUMM (0.0-0.2); ABSOLUTE EOSINOPHIL COUNT 0.2 /CUMM (0.0-0.7); ABSOLUTE GRANULOCYTE CT 3.7 /CUMM (1.4-6.5); ABSOLUTE LYMPH COUNT 1.7 /CUMM (1.2-3.4); ABSOLUTE MONOCYTE COUNT 0.6 /CUMM (0.10-0.60); BASOPHIL % 0.9 % (0.0-2.0); EOSINOPHIL % 2.9 % (0-5); GRANULOCYTE % 59.5 % (42.2-75.2); HEMATOCRIT 33.2 % (42-52); MEAN CORPUSCULAR HGB 30.4 PG (27.0-31.0); MEAN CORPUSCULAR VOLUME 89.4 FL (80.0-94.0); MEAN PLATELET VOLUME 9.7 FL (7.4-10.4); PLATELET COUNT 135 /CUMM (130-400); RBC DISTRIBUTION WIDTH 13.6 % (11.5-14.5); RED BLOOD CELL CT 3.72 /CUMM (4.70-6.10); WHITE BLOOD CELL COUNT 6.2 /CUMM (4.8-10.8)
--- NOTE | 2016-10-25 08:51 | PN- Housestaff ---
FABIO GUILLEN,DYLAN 10/25/16 0851: Subjective Follow-up For: Hypotension Subjective: Patient today appears stable. No acute distress. Was eating his breakfast this morning. Denies cough, shortness of breath, chest pains, diarrhea, nausea, vomiting, abdominal pain, fever, chills. Requested is he can go home today. No overnight events reported. Review of Systems Constitutional: Reports: see HPI. Objective Last 24 Hrs of Vital Signs/I&O Vital Signs Date Time Temp Pulse Resp B/P Pulse O2 O2 Flow FiO2 Ox Delivery Rate 10/25 0805 98.5 64 20 128/78 92 Room Air 10/25 0033 97.9 51 18 122/80 95 Room Air 10/24 1644 98.2 59 20 126/78 92 Nasal 2.0L Cannula 10/24 1620 92 Nasal 2.0L Cannula 10/24 1316 94 Nasal 2.0L Cannula 10/24 1200 98.1 60 18 108/72 96 Nasal 3.0L Cannula Intake & Output 10/25 1600 10/25 0800 10/25 0000 Intake Total 840 Output Total 1025 Balance -185 Intake, IV 600 Intake, Oral 240 Output, Urine 1025 Physical Exam General Appearance: Alert, Oriented X3, Cooperative, No Acute Distress Skin: No Rashes Cardiovascular: Regular Rate, Normal S1, Normal S2 Lungs: Clear to Auscultation Abdomen: Normal Bowel Sounds, Soft, No Tenderness Extremities: No Clubbing, No Cyanosis, No Edema Current Medications: Current Medications Sig/Armando Start time Last Medication Dose Route Stop Time Status Admin Acetaminophen 650 MG .STK-MED ONE 10/245 DC PO 10/24 220 Acetaminophen 650 MG .STK-MED ONE 10/24 1708 DC PO 10/24 1709 Acetaminophen 650 MG Q6P PRN 10/23 2300 AC 10/24 PO 2207 Azithromycin 500 MG 10/24 DC Sodium Chloride 250 ML IV Ceftriaxone Sodium 1,000 MG 10/24 CAN IV Cholecalciferol 2,000 IU DAILY 10/24 1000 AC 10/25 PO 0938 Citalopram 40 MG DAILY 10/24 1000 AC 10/25 Hydrobromide PO 09 Gemfibrozil 600 MG BID 10/24 1000 AC 10/25 PO 0938 Heparin Sodium 5,000 UNIT Q8 10/23 2256 AC 10/25 (Porcine) SC 0524 Levothyroxine Sodium 0.05 MG DAILY AC 10/24 0700 AC 10/25 PO 0524 Naltrexone HCl 50 MG DAILY 10/24 1000 AC 10/25 PO 0938 Omeprazole 20 MG DAILY AC 10/24 0700 AC 10/25 PO 0524 Perphenazine 3 MG QPM 10/24 2200 AC 10/24 PO 2203 Pravastatin Sodium 20 MG DAILY 10/24 1000 AC 10/25 PO 0938 Sodium Chloride 1,000 ML ONCE ONE 10/24 1515 DC 10/24 IV 10/25 0434 1706 Sodium Chloride 1,000 ML .[id number] 10/23 2300 DC 10/24 IV 10/24 1458 1307 Last 24 Hrs of Lab/Kendall Results Last 24 Hrs of Labs/Mics: Laboratory Tests 10/25/16 0604: Anion Gap 7, Estimated GFR > 60, Glucose 107 H, Calcium 8.5, Phosphorus 2.6, Magnesium 1.7, Total Bilirubin 0.4, AST 64 H, ALT 86 H, Albumin 3.3 L, CBC w Diff NO MAN DIFF REQ, RBC 3.72 L, MCV 89.4, MCH 30.4, RDW 13.6, MPV 9.7, Gran % 59.5, Lymphocytes % 27.4, Monocytes % 9.3, Eosinophils % 2.9, Basophils % 0.9, Absolute Granulocytes 3.7, Absolute Lymphocytes 1.7, Absolute Monocytes 0.6, Absolute Eosinophils 0.2, Absolute Basophils 0.1, PUBS MCHC 34.0 Microbiology 10/24 1450 STOOL: Clostridium difficile Toxin A & B - RECD Assessment/Plan Assessment: This is a 61-year-old gentleman with a past medical history significant for diabetes, hypertension, hypothyroidism, hyperlipidemia, major depressive disorder, previous history of alcohol use has been sober now for 5 years that presents to the emergency room today with his family with a chief complaint of chills, nausea, vomiting and diarrhea for the past 12 hours Hospital course In ED chest x-ray showed opacity in right lung base, he was hypotensive despite 4 L normal saline, had central line placed, given levo fed which was later discontinued as his blood pressure stabilized. He was initially started on ceftaz and azithromycin for questionable as chest x-ray revealed light lower lobe opacity. Medications was later stopped once CAT scan came back negative for evidence of infection. He had no other source of infection including clear urine and negative blood cultures and negative Legionella and strep urinary antigens. His hypotension was attributed to diarrhea possibly vital which has resolved now. Patient did have fever which again could be because of viral etiology. Has been afebrile over the last 24 hours with normal white count all throughout his admission. We will plan to discharge the patient and he should follow-up with his primary care physician in a week upon discharge. We will continue all his other home medications including antidepressants, levothyroxin, hyperlipidemia medications Patient is tolerating this diet well today with no evidence of diarrhea. Leave note given to patient mentioning his length of stay in the hospital Problem List: 1. Hypotension 2. Gastroenteritis Pain Ratin Pain Location: No pain Pain Goal: Remain pain free Pain Plan: Not on medications Tomorrow's Labs & Rationales: Patient to be discharged today GARLAND FREDERICK MD 10/25/16 1135: Attending MD Review Statement Attending Statement Attending MD Statement: examined this patient, discuss w/resident/PA/VARNISH MIXER, agreed w/resident/PA/VARNISH MIXER, reviewed EMR data (avail), discussed with nursing, reviewed images, amended to note Attending Assessment/Plan: Patient seen and examined, feels well. Offers no complaints. Patient is afebrile with white count normal. Blood pressure is stabilized. Patient was admitted with hypotension and had likely gastroenteritis related hypotension secondary to dehydration. Symptoms have resolved and patient is hemodynamically stable. CAT scan abd was consistent with possible perinephric stranding but urine culture and urinalysis is completely negative and patient has no symptoms. Patient is medically stable for discharge home today. He will follow-up with his primary care doctor as an outpatient.
--- NOTE | 2016-10-25 10:09 | Patient Discharge Instructions ---
Acute Coronary Syndrome Inclusion Criteria At DC or during hospital stay patient has or had the following: ACS DIAGNOSIS No Discharge Core Measures Meds if any: Prescribed or Continued at Discharge Meds if any: NOT Prescribed or Continued at Discharge Congestive Heart Failure Inclusion Criteria At DC or during hospital stay patient has or had the following: CHF DIAGNOSIS No Discharge Core Measures Meds if any: Prescribed or Continued at Discharge Meds if any: NOT Prescribed or Continued at Discharge Cerebrovascular accident Inclusion Criteria At DC or during hospital stay patient has or had the following: CVA/TIA Diagnosis No Discharge Core Measures Meds if any: Prescribed or Continued at Discharge Meds if any: NOT Prescribed or Continued at Discharge Venous thromboembolism Inclusion Criteria VTE Diagnosis No VTE Type NONE VTE Confirmed by (Test) NONE Discharge Core Measures - Per Current guidelines, there needs to be overlap - treatment for the first 5 days of Warfarin therapy. - If discharged on Warfarin prior to 5 days of - overlap therapy, the patient will need to be - assessed for post discharge needs including - *Post discharge parental anticoagulation - *Warfarin and/or parental anticoagulation education - *Follow up date to check INR post discharge At least 5 days overlap therapy as Inpatient No Meds if any: Prescribed or Continued at Discharge Note: Overlap Therapy is Warfarin and Anticoagulant Meds if any: NOT Prescribed or Continued at Discharge
--- NOTE | 2016-11-01 10:48 | Discharge Summary ---
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 Vitals: Tmax 101.2, HR 90-110, BP 102/73 --> 89/60 after 4 L NS, sats 94% on 2L Labs: WBC 9.2, bands 6, lactic acid 1.4, trop neg, UA clear. CXR: Focal airspace opacification right lung base, CT head neg, CT CAP: bibasilar atelectasis, nephrolithiasis. EKG: SR. Echo (2009): EF 55-60%. Hospital course 1. Hypoxia/severe sepsis with septic shock 2/2 Patient was admitted to ICU.Right IJ line was placed and started on pressors in the ED.. Pateint was farfan cultured and started on ceftriaxone and azithromycin for community acquired PNA as chest x-ray indicated right lower lobe opacity. His blood pressure stabilised very quickly and pressors were discontinued. Rapid flu on admission was negative. Patients vitals stabilized in less then 24 hrs. He was transferred out to general medical floor. Antibiotics were discontinued as CT chest did not show evidence of infection. Abx was later stopped once CAT scan came back negative for evidence of infection. He had no other source of infection including, urine clear and negative blood cultures, negative Legionella and strep urinary antigens. His hypotension was attributed to diarrhea possibly which has resolved. Patient did have fever which again could be because of viral etiology. Has been afebrile over the last 24 hours with normal white count all throughout his admission. Patient is tolerating this diet well with no evidence of diarrhea. Was recommended to follow up with PCP in a week upon discharge. He was instucted to return to ED if symptoms resumes. Leave note given to patient mentioning his length of stay in the hospital He was continued on all his other home medications including Pravastatin, Citalopram, Levothyroxine, Gemfibrozil Allergies: Coded Allergies: strawberry (Intermediate, RASH 08/28/16) Disposition Summary Disposition Principal Diagnosis: 1. Hypovolemic shock requiring short duration of pressors with unknown etiology . Additional Diagnosis: HTN HLD Bipolar disorder DM Hypothyroidism Discharge Disposition: home or self care Discharge Instructions General Discharge Information Code Status: Full Code Patient's Diet: Diabetic diet Patient's Activity: As tolerated Follow-Up Instructions/Appts: 1. Follow up with PCP in a week upon discharge Medications at Discharge Discharge Medications: Continue taking these medications: Gemfibrozil (Lopid) 600 MG TABLET 1 Tablet ORAL Every Day Comments: Last Taken: 10/25/16 Time: 0900AM Folic Acid/Mv,Fe,Other Min (Centrum Chewable Tablet) 0.4 MG-18 MG-3,500 UNIT TAB.CHEW 1 Tablet ORAL Every Day Comments: not taken in hospital NALTREXONE HCL (Naltrexone HCl) 50 MG TAB 1 Tablet ORAL DAILY Qty = 30 Citalopram Hydrobromide (Celexa) 40 MG TABLET 1 Tablet ORAL Every Day Comments: Last Taken: 10/25/16 Time: 0900AM Pravastatin Sodium (Pravastatin Sodium) 20 MG TABLET 1 Tablet ORAL DAILY Comments: Last Taken: 10/25/16 Time: 0900AM Levothyroxine Sodium (Synthroid) 50 MCG TABLET 1 Tablet ORAL DAILY BEFORE BREAKFAST Comments: Last Taken: 10/25/16 Time: 0600AM Cholecalciferol (Vitamin D3) (Vitamin D3) 2,000 UNIT CAPSULE 1 Tablet ORAL Every Day Comments: Last Taken: 10/25/16 Time: 0900AM Perphenazine (Perphenazine) 2 MG TABLET 1.5 Tablet ORAL Every night Qty = 135 Comments: NOT TAKEN IN HOSPITAL Omeprazole Magnesium (Prilosec Otc) 20 MG TABLET.DR 1 Tablet ORAL DAILY Qty = 30 Comments: NOT GIVEN IN HOSPITAL Copies To: RHODA GUILLEN,TESSA Rubio
== END 2016-10-25 13:27 | DRG 391 ==
LOC: ENRESERVDT → ENRESERVTM → ERH 16:21 → CRI 19:00 → 2NB 19:00 → ERHI 19:00 → 2NB 19:00 → ENPENDDIS 19:00 → CRI 23:31 → 2NB 10-24 16:15
PROVIDERS: Internal Medicine; Physician Assistant; Student in an Organized Health Care Education/Training Program; ADMIT Student in an Organized Health Care Education/Training Program
DX: A08.4 Viral intestinal infection, unspecified (principal); R57.1 Hypovolemic shock; E23.0 Hypopituitarism; F25.9 Schizoaffective disorder, unspecified; F31.9 Bipolar disorder, unspecified; E11.9 Type 2 diabetes mellitus without complications; I10 Essential (primary) hypertension; E03.9 Hypothyroidism, unspecified; E78.5 Hyperlipidemia, unspecified; F32.9 Major depressive disorder, single episode, unspecified; Z87.891 Personal history of nicotine dependence
CPT/HCPCS: 2NBSP; CCU; 36415; 74176; 81003; 82436; 87040; 87086; 87449; 87450; 87804; 87804-59; 93005; 93010; 96361; 96374; 96375; 99291; J0456; J0696; J1644; J2405; J7040

== ENCOUNTER 2016-10-26 11:54 | Emergency (ER) | payer OTHER ==
[~2016-10-26] VITALS: Ht 170.2 cm; Wt 82.6 kg
--- NOTE | 2016-10-26 12:18 | ED GENERAL ADULT ---
See Addendum History of Present Illness General Chief Complaint: Chest Pain Stated Complaint: CHEST PAIN Source: patient Exam Limitations: no limitations Allergies Coded Allergies: strawberry (Intermediate, RASH 08/28/16) Reconcile Medications Cholecalciferol (Vitamin D3) (Vitamin D3) 2,000 UNIT CAPSULE 1 TAB PO D SUPPLEMENT (Reported) Citalopram Hydrobromide (Celexa) 40 MG TABLET 1 TAB PO D PAIN CONTROL ( Reported) Folic Acid/Mv,Fe,Other Min (Centrum Chewable Tablet) 0.4 MG-18 MG-3,500 UNIT TAB.CHEW 1 TAB PO D VITAMIN SUPPORT (Reported) Gemfibrozil (Lopid) 600 MG TABLET 1 TAB PO D HIGH CHOLESTROL (Reported) Levothyroxine Sodium (Synthroid) 50 MCG TABLET 1 TAB PO DAILY AC THYROID ( Reported) NALTREXONE HCL (Naltrexone HCl) 50 MG TAB 1 TAB PO DAILY MENTAL HEALTH ( Reported) Omeprazole Magnesium (Prilosec Otc) 20 MG TABLET.DR 1 TAB PO DAILY GERD Perphenazine 2 MG TABLET 1.5 TAB PO QPM MENTAL HEALTH (Reported) Pravastatin Sodium 20 MG TABLET 1 TAB PO DAILY CHOLESTEROL (Reported) Triage Note: PT WAS JUST DISCHARGED YESTERDAY FROM HOSPITAL AFTER BEING ADMITTED FOR LOW BLOOD SUGAR SEPTIC SHOCK. PT STATES THAT HE STARTED LAST PM WITH L SIDE CP, PAIN IS UNDER HIS NIPPLE AND NON RADIATING, Triage Nurses Notes Reviewed? yes HPI: 10/26/16 1 PM 61-year-old man presents to the emergency department complaining of left-sided lower rib pain. The patient states he was just discharged from the hospital yesterday. He was admitted for shock. He has a history of diabetes. The onset of the symptoms were abrupt, the duration was just today, the severity was significant as his symptoms required her to come to the emergency department for care. He's complaining of left-sided rib pain. (ALISON GARCIA DO) Vital Signs & Intake/Output Vital Signs & Intake/Output Vital Signs Date Time Temp Pulse Resp B/P Pulse O2 O2 Flow FiO2 Ox Delivery Rate 10/26 1654 97.2 86 16 129/81 92 Room Air 10/26 1547 Room Air 10/26 1408 54 18 112/75 91 Room Air 10/26 1201 97.4 90 18 106/72 96 Room Air Past History Travel History Traveled to [place] past 21 day No Medical History Any Pertinent Medical History? see below for history Neurological: TIA EENT: NONE Cardiovascular: hypertension, hyperlipidemia Respiratory: NONE Gastrointestinal: NONE Hepatic: NONE Renal: NONE Musculoskeletal: NONE Psychiatric: bipolar disease, depression, schizo affective disorder, MANIC DEPRESSIVE Endocrine: diabetes, hypopituitarism Blood Disorders: NONE Cancer(s): NONE DEMURRAGE AGENT/Reproductive: NONE History of MRSA: No History of VRE: No History of CDIFF: No Influenza Vaccine: 05/26/16 Surgical History Surgical History: LIPOMA RESECTION Psychosocial History Who do you live with Family Services at Home None What is your primary language Maori Tobacco Use: Never used ETOH Use: denies use Illicit Drug Use: denies illicit drug use Family History Family History, If Any: FATHER, ; Cause: Stroke. Hx Contributory? No (ALISON GARCIA DO) Review of Systems Review of Systems Constitutional: Denies: fever. EENTM: Denies: visual changes. Respiratory: Denies: short of breath. Cardiovascular: Reports: chest pain (chest wall pain left). GI: Denies: abdominal pain. Genitourinary: Reports: no symptoms. Musculoskeletal: Reports: see HPI. Skin: Denies: rash. Neurological/Psychological: Denies: headache. Hematologic/Endocrine: Denies: bruising, bleeding. Immunologic/Allergic: Reports: no symptoms. (ALISNO GARCIA DO) Physical Exam Physical Exam General Appearance: alert, awake, anxious, mild distress Head: atraumatic, normal appearance Eyes: Bilateral: normal appearance, PERRL, EOMI. Ears, Nose, Throat: normal pharynx, normal ENT inspection Neck: normal inspection, supple, full range of motion Respiratory: normal breath sounds, no respiratory distress, left-sided chest wall tenderness Cardiovascular: regular rate/rhythm Peripheral Pulses: 4+ radial (R), 4+ radial (L) Gastrointestinal: non-tender Back: decreased range of motion Extremities: pedal edema Neurologic/Psych: no motor/sensory deficits, awake, alert, oriented x 3 Skin: intact, normal color, warm/dry Core Measures ACS in differential dx? Yes CVA/TIA Diagnosis: No Severe Sepsis Present: No Septic Shock Present: No (ALISON GARCIA DO) Progress Differential Diagnoses I considered the following diagnoses in my evaluation of the patient: Pneumonia, acute coronary syndrome, pneumothorax, pulmonary embolism Initial ED EKG: nonspecific ST T wave chg (ALISON GARCIA DO) Plan of Care: Orders Procedure Date/time Status TROPONIN LEVEL 10/26 1247 Complete D-DIMER 10/26 124 Complete COMPREHENSIVE METABOLIC PANEL 10/26 124 Complete CBC WITHOUT DIFFERENTIAL 10/26 124 Complete EKG 10/26 1155 Active Laboratory Tests 10/26/16 1314: Anion Gap 9, Estimated GFR > 60, BUN/Creatinine Ratio 11.4, Glucose 123 H, Calcium 8.8, Total Bilirubin 0.7, AST 36, ALT 69, Alkaline Phosphatase 51, Troponin I < 0.01, Total Protein 6.3, Albumin 3.5, Globulin 2.8, Albumin/ Globulin Ratio 1.3, D-Dimer 518 H, CBC w Diff NO MAN DIFF REQ, RBC 4.00 L, MCV 88.3, MCH 30.2, RDW 13.4, MPV 8.6, Gran % 65.4, Lymphocytes % 21.1, Monocytes % 10.4 H, Eosinophils % 2.2, Basophils % 0.9, Absolute Granulocytes 3.8, Absolute Lymphocytes 1.2, Absolute Monocytes 0.6, Absolute Eosinophils 0.1, Absolute Basophils 0.1, PUBS MCHC 34.2 3:28 pm Patient signed out to me by Dr. Garcia. Pending CTA chest. 4:41 PM CTA chest negative for pulmonary embolism. Small bilateral pleural effusions. Patient and related without shortness of breath maintained a saturation of 93%. Patient is requesting to go home at this time. (ROSA GUILLEN,AMINTA) Diagnostic Imaging: Viewed by Me: CT Scan. Discussed w/RAD: CT Scan. Radiology Impression: PATIENT: BELLA LOPEZ PRESENT AGE: 61 PATIENT ACCOUNT NO: [id number] : 55 LOCATION: [facility] ORDERING PHYSICIAN: ALISON GARCIA DO SERVICE DATE: 10/26/16 EXAM TYPE: CAT - CTA CHEST-PULMONARY EMBOLISM EXAMINATION: CT ANGIOGRAM OF THE CHEST WITH AND WITHOUT CONTRAST (CT PULMONARY ANGIOGRAM FOR PE) CLINICAL INFORMATION: Left-sided chest pain. COMPARISON: Chest x-ray from earlier the same day. CT of the chest from 10/23/2016. TECHNIQUE: Prior to contrast administration, noncontrast localization images were obtained. Subsequently, multidetector volumetric imaging was performed from the thoracic inlet to below the diaphragms following the administration of 95 mL Optiray 320 intravenous contrast. No contrast reaction reported Sagittal, coronal, and MIP oblique sagittal reformatted images were obtained on the CT workstation, uploaded to PACS, and reviewed. Total exam dose-length product 533 mGy-cm FINDINGS: QUALITY OF STUDY/ CONTRAST BOLUS: Satisfactory. PULMONARY ARTERIES: No central or segmental pulmonary emboli. THORACIC AORTA: Variant anatomy of the aorta. The arch is in the midline and the mid to distal arch is dilated up to 3.9 cm; the ascending aspect of the arch is nondilated. The aorta descends slightly to the right of midline. There is also variant anatomy of the great vessels arising from it, with first a common origin of the right and left common carotid arteries, followed by the right subclavian artery, and finally the left subclavian artery. LUNG: There are small bilateral pleural effusions with associated bilateral lower lobe compressive atelectasis. Mild biapical pleural-parenchymal scarring. The central airways are patent. No pneumothorax. MEDIASTINUM: The heart and pericardium appear unremarkable. There is a trace amount pericardial fluid. No mediastinal adenopathy. The right peritracheal node measures up to 9 mm in short axis, unchanged. No evidence of septal bowing or right heart strain. CHEST WALL /AXILLA: No axillary or internal mammary lymphadenopathy. OSSEOUS STRUCTURES: No acute osseous abnormalities are evident. No compression deformities. UPPER ABDOMEN: 82.3 cm focus of hypoattenuation is seen within the posterior right lobe of the liver, unchanged, likely a cyst or hemangioma. Otherwise the upper abdominal viscera appear unremarkable. No reflux of contrast into the hepatic veins to suggest elevated right heart pressures. IMPRESSION: No central or segmental pulmonary embolism. Small bilateral pleural effusions with associated lower lobe compressive atelectasis. Variant anatomy of the aorta as described above with focal dilatation of the mid to distal aortic arch measuring up to 3.9 cm in diameter. VTE: negative DICTATED BY: ADDI YOUNG MD DATE/TIME DICTATED: 10/26/161614 SPLITTING MACHINE OPERATOR:KVNG DATE/TIME TRANSCRIBED:10/26/161614 CONFIDENTIAL, DO NOT COPY WITHOUT APPROPRIATE AUTHORIZATION. <Electronically signed in Other Vendor System> SIGNED BY: ADDI YOUNG MD 10/26/16 5600 (AMINTA LEE MD) Departure Departure Condition: Stable Referrals: RHODA GUILLEN,TESSA Rubio (PCP/Family) Departure Forms: Customer Survey General Discharge Information Comments PATIENT WITH ELEVATED D-DIMER CTA ORDERED. PATIENT SIGNED OUT TO DR LEE at 3 PM. (ALISON GARCIA DO) Departure Time of Disposition: 1641 Disposition: HOME OR SELF CARE Clinical Impression Primary Impression: Pleural effusion Secondary Impressions: Atelectasis, Chest pain Additional Instructions: Follow-up with your doctor in the office. Return to the ER for any changing or worsening symptoms, shortness of breath, fever, chills. PA/PEN TESTER Co-Sign Statement Statement: ED Attending supervision documentation- [] I saw and evaluated the patient. I have also reviewed all the pertinent lab results and diagnostic results. I agree with the findings and the plan of care as documented in the PA's/PEN TESTER's documentation. [X] I have reviewed the ED Record and agree with the PA's/PEN TESTER's documentation. [] Additions or exceptions (if any) to the PAs/PEN TESTER's note and plan are summarized below: [] (AMINTA LEE MD) Critical Care Note Critical Care Note Critical Care Time: non-applicable (ALISON GARCIA DO)
--- NOTE | 2016-10-26 13:21 | RADIOLOGY REPORT ---
EXAMINATION: XR PORTABLE CHEST CLINICAL INFORMATION: Chest pain COMPARISON: 10/23/2016 TECHNIQUE: Portable AP view of the chest was obtained. FINDINGS: In the interval since the prior study there has been removal of a right internal jugular central venous catheter. No pneumothorax. The cardiac mediastinal silhouette is normal. The lungs are clear. No evidence of consolidation, pulmonary edema, pleural effusion, or pneumothorax. The spine is not well assessed. No acute osseous abnormalities are evident elsewhere. IMPRESSION: No acute abnormality. Interval removal of a right internal jugular central venous catheter. No pneumothorax.
[2016-10-26 13:22] LABS: ABSOLUTE BASOPHIL COUNT 0.1 /CUMM (0.0-0.2); ABSOLUTE EOSINOPHIL COUNT 0.1 /CUMM (0.0-0.7); ABSOLUTE LYMPH COUNT 1.2 /CUMM (1.2-3.4); ABSOLUTE MONOCYTE COUNT 0.6 /CUMM (0.10-0.60); BASOPHIL % 0.9 % (0.0-2.0); WHITE BLOOD CELL COUNT 5.9 /CUMM (4.8-10.8)
[2016-10-26 13:24] LABS: ABSOLUTE GRANULOCYTE CT 3.8 /CUMM (1.4-6.5); EOSINOPHIL % 2.2 % (0-5); GRANULOCYTE % 65.4 % (42.2-75.2); HEMATOCRIT 35.3 % (42-52); MEAN CORPUSCULAR HGB 30.2 PG (27.0-31.0); MEAN CORPUSCULAR HGB CONC 34.2 G/DL (33.0-37.0); MEAN CORPUSCULAR VOLUME 88.3 FL (80.0-94.0); MEAN PLATELET VOLUME 8.6 FL (7.4-10.4); PLATELET COUNT 156 /CUMM (130-400); RBC DISTRIBUTION WIDTH 13.4 % (11.5-14.5)
--- NOTE | 2016-10-26 16:27 | CT SCAN REPORT ---
EXAMINATION: CT ANGIOGRAM OF THE CHEST WITH AND WITHOUT CONTRAST (CT PULMONARY ANGIOGRAM FOR PE) CLINICAL INFORMATION: Left-sided chest pain. COMPARISON: Chest x-ray from earlier the same day. CT of the chest from 10/23/2016. TECHNIQUE: Prior to contrast administration, noncontrast localization images were obtained. Subsequently, multidetector volumetric imaging was performed from the thoracic inlet to below the diaphragms following the administration of 95 mL Optiray 320 intravenous contrast. No contrast reaction reported Sagittal, coronal, and MIP oblique sagittal reformatted images were obtained on the CT workstation, uploaded to PACS, and reviewed. Total exam dose-length product 533 mGy-cm FINDINGS: QUALITY OF STUDY/CONTRAST BOLUS: Satisfactory. PULMONARY ARTERIES: No central or segmental pulmonary emboli. THORACIC AORTA: Variant anatomy of the aorta. The arch is in the midline and the mid to distal arch is dilated up to 3.9 cm; the ascending aspect of the arch is nondilated. The aorta descends slightly to the right of midline. There is also variant anatomy of the great vessels arising from it, with first a common origin of the right and left common carotid arteries, followed by the right subclavian artery, and finally the left subclavian artery. LUNG: There are small bilateral pleural effusions with associated bilateral lower lobe compressive atelectasis. Mild biapical pleural-parenchymal scarring. The central airways are patent. No pneumothorax. MEDIASTINUM: The heart and pericardium appear unremarkable. There is a trace amount pericardial fluid. No mediastinal adenopathy. The right peritracheal node measures up to 9 mm in short axis, unchanged. No evidence of septal bowing or right heart strain. CHEST WALL/AXILLA: No axillary or internal mammary lymphadenopathy. OSSEOUS STRUCTURES: No acute osseous abnormalities are evident. No compression deformities. UPPER ABDOMEN: 82.3 cm focus of hypoattenuation is seen within the posterior right lobe of the liver, unchanged, likely a cyst or hemangioma. Otherwise the upper abdominal viscera appear unremarkable. No reflux of contrast into the hepatic veins to suggest elevated right heart pressures. IMPRESSION: No central or segmental pulmonary embolism. Small bilateral pleural effusions with associated lower lobe compressive atelectasis. Variant anatomy of the aorta as described above with focal dilatation of the mid to distal aortic arch measuring up to 3.9 cm in diameter. VTE: negative
[2016-10-26 16:54] VITALS: BP 129/81
== END 2016-10-26 16:55 ==
LOC: ERH 11:54
PROVIDERS: Emergency Medicine
DX: R07.9 Chest pain, unspecified (principal); J90 Pleural effusion, not elsewhere classified; J98.11 Atelectasis
CPT/HCPCS: 93005; 93010

== ENCOUNTER 2016-11-03 17:59 | Emergency (ER) | payer OTHER ==
--- NOTE | 2016-11-03 18:34 | ED GENERAL ADULT ---
History of Present Illness General Chief Complaint: General Adult Stated Complaint: PER HIGH BS/DIZZNESS Source: patient Exam Limitations: no limitations Vital Signs & Intake/Output Vital Signs & Intake/Output Vital Signs Date Time Temp Pulse Resp B/P Pulse O2 O2 Flow FiO2 Ox Delivery Rate 11/03 2001 71 119/83 11/03 1951 97.0 63 18 119/76 94 Room Air 11/03 1810 98.5 70 16 111/78 98 Room Air Room Air Allergies Coded Allergies: strawberry (Intermediate, RASH 11/03/16) Reconcile Medications Cholecalciferol (Vitamin D3) (Vitamin D3) 2,000 UNIT CAPSULE 1 TAB PO D SUPPLEMENT (Reported) Citalopram Hydrobromide (Celexa) 40 MG TABLET 1 TAB PO D PAIN CONTROL ( Reported) Folic Acid/Mv,Fe,Other Min (Centrum Chewable Tablet) 0.4 MG-18 MG-3,500 UNIT TAB.CHEW 1 TAB PO D VITAMIN SUPPORT (Reported) Gemfibrozil (Lopid) 600 MG TABLET 1 TAB PO D HIGH CHOLESTROL (Reported) Levothyroxine Sodium (Synthroid) 50 MCG TABLET 1 TAB PO DAILY AC THYROID ( Reported) NALTREXONE HCL (Naltrexone HCl) 50 MG TAB 1 TAB PO DAILY MENTAL HEALTH ( Reported) Omeprazole Magnesium (Prilosec Otc) 20 MG TABLET.DR 1 TAB PO DAILY GERD Perphenazine 2 MG TABLET 1.5 TAB PO QPM MENTAL HEALTH (Reported) Pravastatin Sodium 20 MG TABLET 1 TAB PO DAILY CHOLESTEROL (Reported) Triage Note: PT TO TRIAGE WITH DIZZINESS AND LABIAL SUGARS STATES AT 1330 TODAY IT WAS 20, AND HAD A BOWL OF RICE AND NOW IS OVER 250. PT DENIES PAIN OR SOB. HE STATES HE DID HAVE CP LAST NIGHT. HE IS ALERT AND ORIENTED. SKIN WARM AND DRY Triage Nurses Notes Reviewed? yes Onset: Gradual Duration: day(s): (1) Timing: recent history Injury Environment: home Severity: moderate Severity Numbers: 6 Modifying Factors: Improves With: other (eating). HPI: Patient is a 61-year-old male with recently diagnosed elevated blood glucose levels, not currently on medications for diabetes presenting to the emergency Department chief complaint of an episode of low blood glucose level to 20 around noon today. Patient reports that he woke up, did not eat anything, checked his blood glucose level and it was 20. Per family members he was dizzy at the time. They fed him rice and peanut butter and symptoms seem to be improving. Denies any current dizziness. No current lightheadedness. Denies any chest pain palpitations shortness of breath. No abdominal pain. Per family members he has an appointment with his primary care physician next week to evaluate him and potentially start him on medications for diabetes. family concerned because patient does not keep a healthy diet. Drinks a lot of soda and juice. Patient denying any urinary frequency urgency or dysuria. No hematuria. Denies any back pain. He checked his blood glucose level after eating his afternoon and it went up to 150. (RUBEN HTURSTON) Past History Travel History Traveled to [place] past 21 day No Medical History Any Pertinent Medical History? 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 Hx Contributory? No (RUBEN THURSTON) Review of Systems Review of Systems Constitutional: Reports: malaise. Comments Review of systems: See HPI, All other systems negative. Constitutional, no chills fever or weight loss HEENT: No visual changes no sore throat no congestion Cardiovascular: No chest pain ,palpitation , orthopnea or ankle swelling Skin, no jaundice no rashes Respiratory: No dyspnea cough sputum or hemoptysis GI: No nausea no vomiting : No dysuria No hematuria Muscle skeletal: no back pain, no neck pain, Neurologic: No numbness no confusion, no headaches Psych: No stress anxiety or depression,. Heme/endocrine: No bruising no bleeding no polyuria or polydipsia Immunology: No splenectomy or history of AIDS (RUBEN THURSTON) Physical Exam Physical Exam General Appearance: well developed/nourished, no apparent distress, alert, awake , comfortable Comments: Well-developed well-nourished person in no acute distress HEENT: Normal EENT exam, extraocular motion intact, no nystagmus. Pupils equally round and reactive to light and accommodation. Nose is atraumatic. External auditory canal and Tympanic membranes clear. Pharynx normal. No swelling or edema. Neck: Supple, no lymphadenopathy, normal range of motion without pain or tenderness Back: Nontender, no CVA tenderness. Full range of motion Cardiovascular: Regular rate and rhythms no murmurs rubs or gallops, normal JVP Respiratory: Chest nontender. No respiratory distress.breath sounds clear to auscultation bilaterally Abdomen: Soft, obese, nontender nondistended, no appreciable organomegaly. Normal bowel sounds. No ascites Extremity: No edema, full range of motion of all extremities without difficulty or pain. Muscular strength is 5 out of 5. Neuro: Alert oriented x3, motor sensory normal, cranial nerves II through XII grossly intact. Cerebellar testing is unremarkable. Skin: No appreciable rash on exposed skin, skin is warm and dry. Psych: Mood and affect is normal, memory and judgment is normal. Core Measures ACS in differential dx? Yes CVA/TIA Diagnosis: No Severe Sepsis Present: No Septic Shock Present: No (RUBEN THURSTON) Progress Differential Diagnoses I considered the following diagnoses in my evaluation of the patient: Uncontrolled diabetes, medication noncompliance, symptoms secondary to hypoglycemia, dehydration Plan of Care: Orders Procedure Date/time Status Consistent Carbohydrate 1 11/03 D Active MISTAKE 11/03 1819 Active URINALYSIS 11/03 1819 Complete TROPONIN LEVEL 11/03 1819 Complete GLYCOSYLATED HGB 11/03 1819 Active COMPREHENSIVE METABOLIC PANEL 11/03 1819 Complete CBC WITHOUT DIFFERENTIAL 11/03 1819 Complete ACETONE 11/03 1819 Complete EKG 11/03 1819 Active Laboratory Tests 11/03/16 1850: Urine Color YEL, Urine Clarity CLEAR, Urine pH 6.0, Ur Specific [place] 1.025, Urine Protein NEG, Urine Ketones NEG, Urine Nitrite NEG, Urine Bilirubin NEG, Urine Urobilinogen 0.2, Ur Leukocyte Esterase NEG, Ur Microscopic EXAM NOT REQUIRED, Urine Hemoglobin NEG, Urine Glucose NEG 11/03/16 1836: Hemoglobin A1c Pending 11/03/16 183: Anion Gap 11, Estimated GFR > 60, BUN/Creatinine Ratio 18.8, Glucose 137 H, Calcium 9.2, Total Bilirubin 0.7, AST 23, ALT 49, Alkaline Phosphatase 57, Troponin I < 0.01, Total Protein 7.1, Albumin 4.1, Globulin 3.0, Albumin/ Globulin Ratio 1.4, CBC w Diff NO MAN DIFF REQ, RBC 4.53 L, MCV 88.8, MCH 30.0, RDW 13.9, MPV 8.1, Gran % 53.2, Lymphocytes % 31.9, Monocytes % 11.0 H, Eosinophils % 3.1, Basophils % 0.8, Absolute Granulocytes 2.6, Absolute Lymphocytes 1.6, Absolute Monocytes 0.5, Absolute Eosinophils 0.2, Absolute Basophils 0, PUBS MCHC 33.8, Acetone Level NEGATIVE Initial ED EKG: NSR Comments: Patient likely had an episode of lightheadedness secondary to hypoglycemia. Patient has a follow-up appointment with the primary care physician in the next 2-3 days. No medication for her diabetes will be initiated at this time as patient's blood glucose level ranged between 10/25/1949 here. Educated on making good decisions with eating. Also educated on eating snacks before bed to help episodes of hypoglycemia. They were educated on signs and symptoms to return. Patient's blood pressure was stable, repeat orthostatics were negative. Patient declined any dizziness. Patient ready to leave. Patient was fed here in the emergency department. No nausea or vomiting. (RUBEN THURSTON) Departure Departure Time of Disposition: 1955 Disposition: HOME OR SELF CARE Condition: Stable Clinical Impression Primary Impression: Hypoglycemia Referrals: RHODA GUILLEN,TESSA Rubio (PCP/Family) HANK QUINTERO MD Additional Instructions: FOLLOW UP WITH DR DUONG, KEEP APPT FOR MONDAY. RETURN FOR WORSENING SYMPTOMS OR CONCERNS. EAT SMALL SNACKS THROUGHOUT THE DAY. KEEP TRACK OF BLOOD GLUCOSE LEVELS. INCRASE WATER INTAKE. FOLLOW UP WITH ENDOCRINOLOGY WELL. Departure Forms: Customer Survey General Discharge Information (RUBEN THURSTON) PA/MINE EXPLORATION ENGINEER Co-Sign Statement Statement: ED Attending supervision documentation- x I saw and evaluated the patient. I have also reviewed all the pertinent lab results and diagnostic results. I agree with the findings and the plan of care as documented in the PA's/MINE EXPLORATION ENGINEER's documentation. [] I have reviewed the ED Record and agree with the PA's/MINE EXPLORATION ENGINEER's documentation. [] Additions or exceptions (if any) to the PAs/MINE EXPLORATION ENGINEER's note and plan are summarized below: [] (CONRAD GUILLEN,ZOILA) Critical Care Note Critical Care Note Critical Care Time: non-applicable (NIDIA PALOMO,RUBEN)
[2016-11-03 18:46] LABS: ABSOLUTE BASOPHIL COUNT 0 /CUMM (0.0-0.2); ABSOLUTE EOSINOPHIL COUNT 0.2 /CUMM (0.0-0.7); ABSOLUTE GRANULOCYTE CT 2.6 /CUMM (1.4-6.5); ABSOLUTE LYMPH COUNT 1.6 /CUMM (1.2-3.4); ABSOLUTE MONOCYTE COUNT 0.5 /CUMM (0.10-0.60); BASOPHIL % 0.8 % (0.0-2.0); EOSINOPHIL % 3.1 % (0-5); GRANULOCYTE % 53.2 % (42.2-75.2); HEMATOCRIT 40.2 % (42-52); MEAN CORPUSCULAR HGB CONC 33.8 G/DL (33.0-37.0); MEAN CORPUSCULAR VOLUME 88.8 FL (80.0-94.0); MEAN PLATELET VOLUME 8.1 FL (7.4-10.4); PLATELET COUNT 245 /CUMM (130-400); RBC DISTRIBUTION WIDTH 13.9 % (11.5-14.5); RED BLOOD CELL CT 4.53 /CUMM (4.70-6.10)
[2016-11-03 20:02] VITALS: BP 119/83
== END 2016-11-03 20:03 ==
LOC: ERH 17:59
PROVIDERS: Physician Assistant
DX: E11.649 Type 2 diabetes mellitus with hypoglycemia without coma (principal)
CPT/HCPCS: 81003; 93005; 93010

== ENCOUNTER 2016-11-12 23:22 | Emergency (ER) | payer OTHER ==
[~2016-11-12] VITALS: Ht 170.2 cm; Wt 81.6 kg
--- NOTE | 2016-11-12 23:51 | ED GI/GU/ABDOMINAL COMPLAINT ---
History of Present Illness General Chief Complaint: General Adult Stated Complaint: V/D/N FEVER@HOME WEAKNESS Source: patient, family, old records Exam Limitations: no limitations Vital Signs & Intake/Output Vital Signs & Intake/Output Vital Signs Date Time Temp Pulse Resp B/P Pulse O2 O2 Flow FiO2 Ox Delivery Rate 11/12 2343 96.9 72 20 130/87 95 Room Air ED Intake and Output 11/13 0000 11/12 1200 Intake Total Output Total Balance Patient 180 lb Weight Allergies Coded Allergies: strawberry (Intermediate, RASH 11/03/16) Reconcile Medications Cholecalciferol (Vitamin D3) (Vitamin D3) 2,000 UNIT CAPSULE 1 TAB PO D SUPPLEMENT (Reported) Citalopram Hydrobromide (Celexa) 40 MG TABLET 1 TAB PO D PAIN CONTROL ( Reported) Folic Acid/Mv,Fe,Other Min (Centrum Chewable Tablet) 0.4 MG-18 MG-3,500 UNIT TAB.CHEW 1 TAB PO D VITAMIN SUPPORT (Reported) Gemfibrozil (Lopid) 600 MG TABLET 1 TAB PO D HIGH CHOLESTROL (Reported) Levothyroxine Sodium (Synthroid) 50 MCG TABLET 1 TAB PO DAILY AC THYROID ( Reported) NALTREXONE HCL (Naltrexone HCl) 50 MG TAB 1 TAB PO DAILY MENTAL HEALTH ( Reported) Omeprazole Magnesium (Prilosec Otc) 20 MG TABLET.DR 1 TAB PO DAILY GERD Perphenazine 2 MG TABLET 1.5 TAB PO QPM MENTAL HEALTH (Reported) Pravastatin Sodium 20 MG TABLET 1 TAB PO DAILY CHOLESTEROL (Reported) Triage Note: PT TO ED C/O +N/V AND HEADACHE. PMH OF NIDDM (MEDS NEW THIS WEEK) FINGER STICK 170 AT 2000 AND FINGERSTICK 120 AFTER +N/V. DENIES ILL CONTACTS Triage Nurses Notes Reviewed? yes Onset: Abrupt Duration: hour(s): (1) Timing: single episode today Quality/Severity: moderate HPI: This is a 61-year-old male with history of diabetes recently started on metformin 3 days ago who presents to the ER from home for chief complaint of nausea, vomiting 1 and right-sided headache. The patient states he was fine until this evening when the headache started. Denies any blurred vision. reports that after eating a cheeseburger for dinner at 6:30 that he felt nauseous and vomited times one. They checked his blood sugar was 170 and then 110-120. They were concerned as to weeks ago he was hospitalized for hypotensive hypertension and shock. reports that he is looking better at this time and wanted to make sure everything was okay. Patient denies any nausea at this time. He does complain of some mid abdominal crampy pain. It is taking 1500 of extended-release metformin nightly. Past History Travel History Traveled to [place] past 21 day No Medical History Any Pertinent Medical History? 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 Hx Contributory? No Review of Systems Review of Systems Constitutional: Denies: chills, fever. EENTM: Reports: no symptoms. Respiratory: Denies: hemoptysis, short of breath, sputum production. Cardiovascular: Denies: chest pain, palpitations. GI: Reports: abdominal pain, nausea, vomiting. Genitourinary: Reports: no symptoms. Musculoskeletal: Reports: no symptoms. Skin: Reports: no symptoms. Neurological/Psychological: Reports: anxiety, headache. Hematologic/Endocrine: Denies: bruising, bleeding, polyuria, polydipsia. Immunologic/Allergic: Denies: splenectomy. All Other Systems: Reviewed and Negative Physical Exam Physical Exam General Appearance: well developed/nourished, alert, awake, anxious, mild distress Head: atraumatic, normal appearance Eyes: Bilateral: normal appearance, PERRL, EOMI. Ears, Nose, Throat, Mouth: hearing grossly normal, moist mucous membrane Neck: normal inspection, supple, full range of motion Respiratory: normal breath sounds, chest non-tender, no respiratory distress Cardiovascular: regular rate/rhythm Gastrointestinal: normal bowel sounds, soft, non-tender Extremities: normal range of motion Neurologic/Psych: no motor/sensory deficits, awake, alert, oriented x 3 Skin: intact, normal color, warm/dry Core Measures ACS in differential dx? No Severe Sepsis Present: No Septic Shock Present: No Progress Differential Diagnosis: MEDICATION REACTION, HYPOGLYCEMIA, dka, GASTROENTERITIS, BOWEL OBSTRUCTION Plan of Care: Orders Procedure Date/time Status URINALYSIS 11/12 2351 Active COMPREHENSIVE METABOLIC PANEL 11/12 2351 Complete CBC WITHOUT DIFFERENTIAL 11/12 2351 Complete EKG 11/12 2351 Active Laboratory Tests 11/13/16 0055: Anion Gap 10, Estimated GFR > 60, BUN/Creatinine Ratio 25.0, Glucose 146 H, Calcium 9.7, Total Bilirubin 0.6, AST 35, ALT 48, Alkaline Phosphatase 58, Total Protein 7.5, Albumin 4.4, Globulin 3.1, Albumin/Globulin Ratio 1.4, CBC w Diff NO MAN DIFF REQ, RBC 4.69 L, MCV 88.5, MCH 29.9, RDW 13.6, MPV 8.7, Gran % 76.6 H, Lymphocytes % 15.1 L, Monocytes % 6.8, Eosinophils % 1.0, Basophils % 0.5, Absolute Granulocytes 5.9, Absolute Lymphocytes 1.2, Absolute Monocytes 0.5, Absolute Eosinophils 0.1, Absolute Basophils 0, PUBS MCHC 33.8 LABS, FLUIDS, IV TYLENOL ORDERED. very upset in delay of IV being placed. Nursing staff busy with transporting telemetry patients. I informed her of the reasons for delay. 1:14 AM Patient resting comfortably. White blood count IS WITHIN NORMAL LIMITS FLUIDS INFUSING AT THIS TIME. Labs within normal limits. Patient is feeling much better at this time. Stable for discharge. (ROSA GUILLEN,AMINTA) Initial ED EKG: NSR Prior EKG: unchanged Departure Departure Time of Disposition: 138 Disposition: HOME OR SELF CARE Condition: Stable Clinical Impression Primary Impression: Headache Referrals: RHODA GUILLEN,TESSA Rubio (PCP/Family) Additional Instructions: FOLLOW UP WITH YOUR DOCTOR IN THE OFFICE. TAKE THE ZOFRAN NEEDED FOR NAUSEA. RETURN NEEDED. Departure Forms: Customer Survey General Discharge Information
[2016-11-13 01:02] LABS: ABSOLUTE BASOPHIL COUNT 0 /CUMM (0.0-0.2); ABSOLUTE EOSINOPHIL COUNT 0.1 /CUMM (0.0-0.7); ABSOLUTE GRANULOCYTE CT 5.9 /CUMM (1.4-6.5); ABSOLUTE LYMPH COUNT 1.2 /CUMM (1.2-3.4); ABSOLUTE MONOCYTE COUNT 0.5 /CUMM (0.10-0.60); BASOPHIL % 0.5 % (0.0-2.0); GRANULOCYTE % 76.6 % (42.2-75.2); HEMATOCRIT 41.5 % (42-52); MEAN CORPUSCULAR HGB 29.9 PG (27.0-31.0); MEAN CORPUSCULAR HGB CONC 33.8 G/DL (33.0-37.0); MEAN CORPUSCULAR VOLUME 88.5 FL (80.0-94.0); MEAN PLATELET VOLUME 8.7 FL (7.4-10.4); PLATELET COUNT 215 /CUMM (130-400); RBC DISTRIBUTION WIDTH 13.6 % (11.5-14.5); RED BLOOD CELL CT 4.69 /CUMM (4.70-6.10); WHITE BLOOD CELL COUNT 7.7 /CUMM (4.8-10.8)
[2016-11-13 01:54] VITALS: BP 111/64
== END 2016-11-13 02:02 ==
LOC: ERH 23:22
PROVIDERS: Emergency Medicine
DX: R51 Headache (principal)
CPT/HCPCS: 93005; 93010; 96374; 96375; J0131; J2405

== ENCOUNTER 2016-12-22 07:00 | Emergency (ER) | payer OTHER ==
[~2016-12-22] VITALS: Ht 170.2 cm; Wt 81.6 kg
--- NOTE | 2016-12-22 07:20 | ED GI/GU/ABDOMINAL COMPLAINT ---
History of Present Illness General Chief Complaint: Nausea, Vomiting, Diarrhea Stated Complaint: HX DIABETIES,VOMITING Source: patient, , OLD RECORDS Exam Limitations: no limitations Vital Signs & Intake/Output Vital Signs & Intake/Output Vital Signs Date Time Temp Pulse Resp B/P Pulse O2 O2 Flow FiO2 Ox Delivery Rate 12/22 1005 97.2 68 18 98/64 98 Room Air 12/22 0705 97.0 53 20 114/74 97 Room Air Allergies Coded Allergies: strawberry (Intermediate, RASH 11/03/16) Reconcile Medications Cholecalciferol (Vitamin D3) (Vitamin D3) 2,000 UNIT CAPSULE 1 TAB PO D SUPPLEMENT (Reported) Citalopram Hydrobromide (Celexa) 40 MG TABLET 1 TAB PO D PAIN CONTROL ( Reported) Folic Acid/Mv,Fe,Other Min (Centrum Chewable Tablet) 0.4 MG-18 MG-3,500 UNIT TAB.CHEW 1 TAB PO D VITAMIN SUPPORT (Reported) Gemfibrozil (Lopid) 600 MG TABLET 1 TAB PO D HIGH CHOLESTROL (Reported) Levothyroxine Sodium (Synthroid) 50 MCG TABLET 1 TAB PO DAILY AC THYROID ( Reported) Metformin HCl (Metformin HCl ER) 500 MG TAB.ER.24H 1 TAB PO BID DIABETES ( Reported) NALTREXONE HCL (Naltrexone HCl) 50 MG TAB 1 TAB PO DAILY MENTAL HEALTH ( Reported) Omeprazole Magnesium (Prilosec Otc) 20 MG TABLET.DR 1 TAB PO DAILY GERD Perphenazine 2 MG TABLET 1.5 TAB PO QPM MENTAL HEALTH (Reported) Pravastatin Sodium 20 MG TABLET 1 TAB PO DAILY CHOLESTEROL (Reported) Triage Note: PT C/O ABDOMINAL PAIN WITH N/V SINCE LAST NIGHT. STATES HX OF DIABETES AND BS HAS BEEN VERY LOW. STATES BS THIS MORNING 90. TOOK METFORMIN LAST NIGHT AND VOMITED AFTER Triage Nurses Notes Reviewed? yes HPI: Patient presents for evaluation of periumbilical abdominal pain with vomiting that began abruptly last night. Patient states that he had tried some Zofran (a prescription left over from prior episodes) without improvement. He states it is a somewhat dull periumbilical cramping pain, mild to moderate in intensity, "like I'm hungry". He does admit to having prior episodes like this. He denies any associated fever, cold symptoms, diarrhea, dyspnea or chest pain. He states his prior episodes been related to a high blood sugar level. He took his blood sugar at home and it ranged from 80-140. Past History Travel History Traveled to [place] past 21 day No Medical History Any Pertinent Medical History? 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 Hx Contributory? No Review of Systems Review of Systems Constitutional: Reports: no symptoms. EENTM: Reports: no symptoms. Respiratory: Reports: no symptoms. Cardiovascular: Reports: no symptoms. GI: Reports: see HPI. Genitourinary: Reports: no symptoms. Musculoskeletal: Reports: no symptoms. Skin: Reports: no symptoms. Neurological/Psychological: Reports: no symptoms. Hematologic/Endocrine: Reports: no symptoms. Immunologic/Allergic: Reports: no symptoms. All Other Systems: Reviewed and Negative Physical Exam Physical Exam Gastrointestinal: see below Comments: Gen.: Well-nourished, well-developed, no acute respiratory distress. Head: Normocephalic, atraumatic. Eyes: Normal inspection bilaterally Ears: Normal inspection bilaterally Nose: Normal inspection Throat/mouth : Moist mucosa Neck: Supple, full range of motion, no goiter Heart: Regular rate and rhythm, question of soft systolic murmur Lungs: Clear to auscultation bilaterally with normal air entry Chest: Nontender Back: Normal range of motion Abdomen: Soft, mild right upper quadrant, right lower quadrant, epigastric and suprapubic abdominal tenderness without rebound or guarding, nondistended, normal bowel sounds Extremities: Normal range of motion grossly, equal radial pulses, no cyanosis clubbing or edema Neurologic: Cranial nerves grossly intact, speech is clear Skin: warm and dry Psychiatric: Calm, cooperative, no apparent delusions or hallucinations Core Measures ACS in differential dx? No Severe Sepsis Present: No Septic Shock Present: No Progress Differential Diagnosis: DIABETIC GASTROPARESIS, VIRAL GASTROENTERITIS, DYSPEPSIA Plan of Care: Orders Procedure Date/time Status Consistent Carbohydrate 1 12/22 L Active URINALYSIS 12/22 728 Complete LIPASE 12/22 728 Complete COMPREHENSIVE METABOLIC PANEL 12/22 728 Complete CBC WITHOUT DIFFERENTIAL 12/22 728 Complete Laboratory Tests 12/22/16 0828: Urinalysis LIGHT H, Urine Color YEL, Urine Clarity CLEAR, Urine pH 7.0, Ur Specific [place] 1.020, Urine Protein NEG, Urine Ketones NEG, Urine Nitrite NEG, Urine Bilirubin NEG, Urine Urobilinogen 0.2, Ur Leukocyte Esterase NEG, Ur Microscopic SEDIMENT EXAMINED, Urine RBC 3-5, Urine WBC 1-3 H, Ur Epithelial Cells FEW, Urine Bacteria RARE H, Urine Mucus PACKD H, Urine Hemoglobin TRACE- INTACT H, Urine Glucose NEG 12/22/16 0736: Anion Gap 5, Estimated GFR > 60, BUN/Creatinine Ratio 21.3, Glucose 100 H, Calcium 9.7, Total Bilirubin 0.7, AST 24, ALT 45, Alkaline Phosphatase 54, Total Protein 7.0, Albumin 4.1, Globulin 2.9, Albumin/Globulin Ratio 1.4, Lipase 70, CBC w Diff NO MAN DIFF REQ, RBC 4.44 L, MCV 88.9, MCH 30.3, RDW 13.2, MPV 9.0, Gran % 53.9, Lymphocytes % 33.3, Monocytes % 9.1, Eosinophils % 3.1, Basophils % 0.6, Absolute Granulocytes 3.4, Absolute Lymphocytes 2.1, Absolute Monocytes 0.6 , Absolute Eosinophils 0.2, Absolute Basophils 0, PUBS MCHC 34.1 Initial ED EKG: none Comments: 12/22/2016 8:16:33 AM Alvaro is feeling better at this point, IV fluids infusing. 12/22/2016 9:09:32 AM according to patient's nurse, he is feeling better and a PO challenge will be given. 12/22/2016 9:46:54 AM Alvaro is resting comfortably at this point and has finished his breakfast. He states he feels well. Departure Departure Disposition: HOME OR SELF CARE Condition: Stable Clinical Impression Primary Impression: Nonspecific abdominal pain Secondary Impressions: Nausea and vomiting Qualifiers: Vomiting type: unspecified Vomiting Intractability: non-intractable Qualified Code: R11.2 - Nausea with vomiting, unspecified Referrals: RHODA GUILLEN,TESSA Rubio (PCP/Family) Additional Instructions: Phenergan as needed for nausea or vomiting. Follow-up with your primary care doctor within the next 24 hours for reevaluation. Return if any concerns or sudden worsening. Please note that there might be incidental findings in your evaluation that are unrelated to the current emergency department visit. Please notify your primary care doctor about this emergency department visit in order to obtain and review all of the testing performed so that these incidental findings can be monitored as needed. Thank you for choosing the [facility] Emergency Department for your care. It was a pleasure to serve you today. Ariel Mustafa M.D. [facility] Departure Forms: Customer Survey General Discharge Information Prescriptions: Current Visit Scripts Promethazine HCl 1 TAB PO Q6-8 #20 TAB
[2016-12-22 07:46] LABS: ABSOLUTE BASOPHIL COUNT 0 /CUMM (0.0-0.2); ABSOLUTE EOSINOPHIL COUNT 0.2 /CUMM (0.0-0.7); ABSOLUTE GRANULOCYTE CT 3.4 /CUMM (1.4-6.5); ABSOLUTE LYMPH COUNT 2.1 /CUMM (1.2-3.4); ABSOLUTE MONOCYTE COUNT 0.6 /CUMM (0.10-0.60); BASOPHIL % 0.6 % (0.0-2.0); EOSINOPHIL % 3.1 % (0-5); GRANULOCYTE % 53.9 % (42.2-75.2); HEMATOCRIT 39.4 % (42-52); MEAN CORPUSCULAR HGB 30.3 PG (27.0-31.0); MEAN CORPUSCULAR HGB CONC 34.1 G/DL (33.0-37.0); MEAN CORPUSCULAR VOLUME 88.9 FL (80.0-94.0); PLATELET COUNT 186 /CUMM (130-400); RBC DISTRIBUTION WIDTH 13.2 % (11.5-14.5); RED BLOOD CELL CT 4.44 /CUMM (4.70-6.10); WHITE BLOOD CELL COUNT 6.2 /CUMM (4.8-10.8)
[2016-12-22] MEDS ORDERED: METFORMIN HCL500 M4 PO (08:17)
[2016-12-22 10:05] VITALS: BP 98/64
[2016-12-22] MEDS ORDERED: PROMETHAZINE12.5 M2 PO (10:34)
== END 2016-12-22 10:41 ==
LOC: ERH 07:00
PROVIDERS: Emergency Medicine
DX: R10.11 Right upper quadrant pain (principal); R10.31 Right lower quadrant pain; R10.13 Epigastric pain; R11.2 Nausea with vomiting, unspecified
CPT/HCPCS: 81001; 96361; 96374; J2765

== ENCOUNTER 2017-01-25 20:22 | Emergency (ER) | payer OTHER ==
[~2017-01-25] VITALS: Ht 170.2 cm; Wt 78.0 kg
[~2017-01-25 20:22] MED LIST changes: +METFORMIN HCL500 M4 PO; +PROMETHAZINE12.5 M2 PO
[2017-01-25 21:33] LABS: ABSOLUTE BASOPHIL COUNT 0 /CUMM (0.0-0.2); ABSOLUTE EOSINOPHIL COUNT 0.1 /CUMM (0.0-0.7); ABSOLUTE GRANULOCYTE CT 3.8 /CUMM (1.4-6.5); ABSOLUTE LYMPH COUNT 1.7 /CUMM (1.2-3.4); ABSOLUTE MONOCYTE COUNT 0.5 /CUMM (0.10-0.60); BASOPHIL % 0.7 % (0.0-2.0); EOSINOPHIL % 2.3 % (0-5); GRANULOCYTE % 60.7 % (42.2-75.2); HEMATOCRIT 39.7 % (42-52); MEAN CORPUSCULAR HGB 29.9 PG (27.0-31.0); MEAN CORPUSCULAR HGB CONC 34.1 G/DL (33.0-37.0); MEAN CORPUSCULAR VOLUME 87.9 FL (80.0-94.0); PLATELET COUNT 203 /CUMM (130-400); RBC DISTRIBUTION WIDTH 13.6 % (11.5-14.5); RED BLOOD CELL CT 4.52 /CUMM (4.70-6.10); WHITE BLOOD CELL COUNT 6.3 /CUMM (4.8-10.8)
--- NOTE | 2017-01-25 21:41 | ED GI/GU/ABDOMINAL COMPLAINT ---
History of Present Illness General Chief Complaint: Abdominal Pain/Flank Pain Stated Complaint: ABD PAIN, +N/V/D, YELLOW OF EYES Source: patient Exam Limitations: no limitations Vital Signs & Intake/Output Vital Signs & Intake/Output Vital Signs Date Time Temp Pulse Resp B/P B/P Pulse O2 O2 Flow FiO2 Mean Ox Delivery Rate 01/259 97.3 60 18 136/80 94 Room Air 01/259 98.4 75 16 115/75 98 Room Air Room Air ED Intake and Output 01/26 0000 01/25 1200 Intake Total 0 Output Total Balance 0 Intake, Oral 0 Patient 172 lb Weight Allergies Coded Allergies: strawberry (Intermediate, RASH 01/25/17) Reconcile Medications Cholecalciferol (Vitamin D3) (Vitamin D3) 2,000 UNIT CAPSULE 1 TAB PO D SUPPLEMENT (Reported) Citalopram Hydrobromide (Celexa) 40 MG TABLET 1 TAB PO D PAIN CONTROL ( Reported) Folic Acid/Mv,Fe,Other Min (Centrum Chewable Tablet) 0.4 MG-18 MG-3,500 UNIT TAB.CHEW 1 TAB PO D VITAMIN SUPPORT (Reported) Gemfibrozil (Lopid) 600 MG TABLET 1 TAB PO D HIGH CHOLESTROL (Reported) Levothyroxine Sodium (Synthroid) 50 MCG TABLET 1 TAB PO DAILY AC THYROID ( Reported) Metformin HCl (Metformin HCl ER) 500 MG TAB.ER.24H 1 TAB PO BID DIABETES ( Reported) NALTREXONE HCL (Naltrexone HCl) 50 MG TAB 1 TAB PO DAILY MENTAL HEALTH ( Reported) Omeprazole Magnesium (Prilosec Otc) 20 MG TABLET.DR 1 TAB PO DAILY GERD Perphenazine 2 MG TABLET 1.5 TAB PO QPM MENTAL HEALTH (Reported) Pravastatin Sodium 20 MG TABLET 1 TAB PO DAILY CHOLESTEROL (Reported) Promethazine HCl 12.5 MG TABLET 1 TAB PO Q6-8 NAUSEA/VOMITING Triage Note: PT TO TRIAGE WITH LEFT SIDEID ABD PAIN FOR 2 DAYS. PT STATES HE HAS HAD DIARRHEA AND A HEAD ACHE THAT GOES INTO HIS NECK. PT STATES PAIN IN HIS HEAD COMES ON QUICKLY. Triage Nurses Notes Reviewed? yes HPI: This patient is a 62-year-old female with past medical history including schizoaffective disorder and hypertension who presented to the emergency department today accompanied by his and daughter for evaluation of multiple complaints. The patient's reported that over the last 2 days he has been having multiple episodes of diarrhea throughout the day with no blood in the stool. He also reported lower abdominal pain that gets up to a 6 out of 10 and radiates across his lower abdomen as well as associated nausea. He denied any fevers, chills, chest pain, difficulty breathing, vomiting, or any other associated symptoms. The patient's believes that the corners of the patient's eyes are yellow. Patient also reports a pounding headache that started while sitting out in triage. (MAURICE SIMPSON PA-C) Past History Travel History Traveled to [place] past 21 day No Medical History Any Pertinent Medical History? see below for history Neurological: TIA EENT: NONE Cardiovascular: hypertension, hyperlipidemia Respiratory: NONE Gastrointestinal: NONE Hepatic: NONE Renal: NONE Musculoskeletal: NONE Psychiatric: bipolar disease, depression, schizo affective disorder, MANIC DEPRESSIVE Endocrine: diabetes, hypopituitarism Blood Disorders: NONE Cancer(s): NONE RADIOLOGY DIRECTOR/Reproductive: NONE History of MRSA: No History of VRE: No History of CDIFF: No Surgical History Surgical History: LIPOMA RESECTION Psychosocial History Who do you live with Family Services at Home None What is your primary language Greenlandic Tobacco Use: Quit >30 days ago ETOH Use: denies use Illicit Drug Use: denies illicit drug use Family History Family History, If Any: FATHER, ; Cause: Stroke. Hx Contributory? No (MAURICE SIMPSON PA-C) Review of Systems Review of Systems Constitutional: Reports: no symptoms. EENTM: Reports: no symptoms. Respiratory: Reports: no symptoms. Cardiovascular: Reports: no symptoms. GI: Reports: see HPI. Genitourinary: Reports: no symptoms. Musculoskeletal: Reports: no symptoms. Skin: Reports: no symptoms. Neurological/Psychological: Reports: see HPI. All Other Systems: Reviewed and Negative (MAURICE SIMPSON PA-C) Physical Exam Physical Exam Gastrointestinal: normal bowel sounds, soft, no organomegaly, no rebound or guarding. No masses or hernias appreciated. Mild tenderness to palpation below the umbilicus with no rebound or guarding. No McBurney's point tenderness. Negative Rovsing sign. Negativepsoas sign Comments: Well-developed well-nourished person in no acute distress HEENT: Normal EENT exam, head normocephalic, moist mucous membranes PERRLA bilaterally. EOMI bilaterally. No scleral icterus or conjunctival injection Neck: Supple, no lymphadenopathy Back: Normal inspection Cardiovascular: Regular rate and rhythm with no murmurs, rubs, or gallops Respiratory: No respiratory distress. Breath sounds clear to auscultation bilaterally Extremity: Normal and equal pulses. Neuro: Alert oriented x3, cranial nerves II through XII grossly intact. Skin: No appreciable rash on exposed skin, skin is warm and dry. Psych: Mood and affect is normal Core Measures ACS in differential dx? Yes Severe Sepsis Present: No Septic Shock Present: No (TATIANA JEAN BAPTISTE,MAURICE) Progress Differential Diagnosis: AMI, appendicitis, biliary colic, bowel obstruction, colon cancer, cholecystitis, diverticulitis, gastritis, hepatitis, ischemic bowel, inflamm bowel dis, pancreatitis, PUD/GERD, perforated viscous, pyelonephritis, ureterolithiasis, urinary retention, urethritis, UTI/pyelo Plan of Care: Orders Procedure Date/time Status EKG 01/25 2100 Active PARTIAL THROMBOPLASTIN TIME 01/25 2031 Complete PROTHROMBIN TIME 01/25 2031 Complete LIPASE 01/25 2031 Complete LACTIC ACID 01/25 2031 Complete DIRECT BILIRUBIN 01/25 2031 Complete COMPREHENSIVE METABOLIC PANEL 01/25 2031 Complete CBC WITHOUT DIFFERENTIAL 01/25 2031 Complete AMYLASE 01/25 2031 Complete Laboratory Tests 01/25/17 2331: Lactic Acid Cancelled 01/25/173: Anion Gap 13, Estimated GFR > 60, BUN/Creatinine Ratio 26.3 H, Glucose 120 H, Lactic Acid 2.0, Calcium 9.3, Total Bilirubin 0.5, Direct Bilirubin 0.4, AST 25, ALT 51, Alkaline Phosphatase 54, Total Protein 7.2, Albumin 4.3, Globulin 2.9, Albumin/Globulin Ratio 1.5, Amylase 43, Lipase 109, PT 11.4, INR 1.09, APTT 37, CBC w Diff NO MAN DIFF REQ, RBC 4.52 L, MCV 87.9, MCH 29.9, RDW 13.6, MPV 9.0, Gran % 60.7, Lymphocytes % 27.7, Monocytes % 8.6, Eosinophils % 2.3, Basophils % 0.7, Absolute Granulocytes 3.8, Absolute Lymphocytes 1.7, Absolute Monocytes 0.5 , Absolute Eosinophils 0.1, Absolute Basophils 0, PUBS MCHC 34.1 Diagnostic Imaging: Viewed by Me: CT Scan. Discussed w/RAD: CT Scan. Radiology Impression: PATIENT: BELLA LOPEZ PRESENT AGE: 62 PATIENT ACCOUNT NO: [id number] : 55 LOCATION: [facility] ORDERING PHYSICIAN: MAURICE SIMPSON PA-C SERVICE DATE: 01/25/17 EXAM TYPE: CAT - CT ABD & PELVIS W IV CONTRAST EXAMINATION: CT ABDOMEN AND PELVIS WITH CONTRAST CLINICAL INFORMATION: Abdominal pain. COMPARISON: CT abdomen and pelvis without contrast 11/29/2015. TECHNIQUE: Multidetector volumetric imaging was performed of the abdomen and pelvis before and after the IV administration of 95 mL of Optiray 320 intravenous contrast. Sagittal and coronal reformatted images were obtained on the technologist's workstation. DLP: 439 mGy-cm FINDINGS : LUNG BASES: The visualized lung bases are unremarkable. LIVER, GALLBLADDER, AND BILIARY TREE: There is diffuse low-attenuation of the liver parenchyma, indicative of fatty infiltration of the liver. The liver is otherwise normal in size, shape, and contour. There are several hypoattenuating lesions within the right and left hepatic lobes, visualized measuring up to 2.2 x 2.3 cm within the posterior right hepatic lobe. These likely reflect multiple simple hepatic cysts. No biliary ductal dilatation is present. The gallbladder is unremarkable with no evidence of radiopaque gallstones, gallbladder wall thickening, or obvious pericholecystic inflammatory changes. PANCREAS: Unremarkable. SPLEEN: There is an ill-defined hypoattenuating lesion within the spleen measuring 1.0 cm. This finding is entirely nonspecific but may reflect a small splenic cyst or hemangioma. ADRENAL GLANDS: Unremarkable. KIDNEYS AND URETERS: Evaluation of the bilateral kidneys and renal collecting systems is notable for nephrolithiasis of the bilateral kidneys, with a 5 mm nonobstructing stone identified within the midpole of the left kidney. There are 2-3 mm nonobstructing stones within the upper and lower poles of the right kidney. No ureteral stones are identified and there is no hydroureteronephrosis of either kidney or renal collecting system. BLADDER: Unremarkable. GASTROINTESTINAL TRACT: Normal anatomic orientation of the stomach relative to the duodenum. Normal caliber of abdominal and pelvic bowel loops, without evidence of obstruction or ileus. No circumferential bowel wall thickening with surrounding inflammatory changes to suggest an underlying infectious or inflammatory enterocolitis. Normal-appearing appendix within the right lower quadrant of the abdomen. No organizing intra-abdominal fluid collections or free intraperitoneal air. ABDOMINAL WALL: Small fat-containing umbilical hernia. LYMPH NODES: No significant abdominal or pelvic adenopathy. VASCULAR: Patent abdominal vasculature. Normal course and caliber of the abdominal aorta and its branching vessels, without aneurysmal dilatation. PELVIC VISCERA: Unremarkable. OSSEOUS STRUCTURES: No acute osseous abnormality. Normal alignment of the thoracolumbar spine. No visible destructive osseous lesions. IMPRESSION: No acute findings within the abdomen or pelvis to explain patient symptomatology. There is nephrolithiasis of the bilateral kidneys, with several subcentimeter nonobstructing stones identified within both kidneys. No ureteral or bladder stones are identified and there is no hydroureteronephrosis of either kidney or renal collecting system. DICTATED BY: GEOVANNY HAMILTON MD DATE/TIME DICTATED:01/25/172300 MEDICINE AIDE:KVNG DATE/TIME TRANSCRIBED:2300 CONFIDENTIAL, DO NOT COPY WITHOUT APPROPRIATE AUTHORIZATION. < Electronically signed in Other Vendor System> SIGNED BY: GEOVANNY HAMILTON MD 01/25/17 3568 Initial ED EKG: normal axis, normal intervals, normal sinus rhythm, no ST T wave changes, 62 bpm (MAURICE SIMPSON PA-C) Departure Departure Disposition: HOME OR SELF CARE Condition: Stable Clinical Impression Primary Impression: Abdominal pain Qualifiers: Abdominal location: lower abdomen, unspecified Qualified Code: R10.30 - Lower abdominal pain, unspecified Referrals: RHODA GUILLEN,TESSA Rubio (PCP/Family) MERRILL GUILLEN,BLOSSOM Valdez Additional Instructions: Please rest. Over the next 24 hours please have a clear liquid diet and then advance your diet as tolerated. Call the GI specialist's information has been provided to you in this packet for further evaluation. Return for any worsening symptoms or Departure Forms: Customer Survey General Discharge Information (MAURICE SIMPSON PA-C) PA/IRISH MOSS OPERATOR Co-Sign Statement Statement: ED Attending supervision documentation- [] I saw and evaluated the patient. I have also reviewed all the pertinent lab results and diagnostic results. I agree with the findings and the plan of care as documented in the PA's/IRISH MOSS OPERATOR's documentation. [X] I have reviewed the ED Record and agree with the PA's/IRISH MOSS OPERATOR's documentation. [] Additions or exceptions (if any) to the PAs/IRISH MOSS OPERATOR's note and plan are summarized below: [] (MARILIN GUILLEN,RADHA Shafer)
[2017-01-25 21:46] LABS: PT 11.4 SEC (9.4-12.5); PTT 37 SEC (25-37)
--- NOTE | 2017-01-25 23:16 | CT SCAN REPORT ---
EXAMINATION: CT ABDOMEN AND PELVIS WITH CONTRAST CLINICAL INFORMATION: Abdominal pain. COMPARISON: CT abdomen and pelvis without contrast 11/29/2015. TECHNIQUE: Multidetector volumetric imaging was performed of the abdomen and pelvis before and after the IV administration of 95 mL of Optiray 320 intravenous contrast. Sagittal and coronal reformatted images were obtained on the technologist's workstation. DLP: 439 mGy-cm FINDINGS: LUNG BASES: The visualized lung bases are unremarkable. LIVER, GALLBLADDER, AND BILIARY TREE: There is diffuse low-attenuation of the liver parenchyma, indicative of fatty infiltration of the liver. The liver is otherwise normal in size, shape, and contour. There are several hypoattenuating lesions within the right and left hepatic lobes, visualized measuring up to 2.2 x 2.3 cm within the posterior right hepatic lobe. These likely reflect multiple simple hepatic cysts. No biliary ductal dilatation is present. The gallbladder is unremarkable with no evidence of radiopaque gallstones, gallbladder wall thickening, or obvious pericholecystic inflammatory changes. PANCREAS: Unremarkable. SPLEEN: There is an ill-defined hypoattenuating lesion within the spleen measuring 1.0 cm. This finding is entirely nonspecific but may reflect a small splenic cyst or hemangioma. ADRENAL GLANDS: Unremarkable. KIDNEYS AND URETERS: Evaluation of the bilateral kidneys and renal collecting systems is notable for nephrolithiasis of the bilateral kidneys, with a 5 mm nonobstructing stone identified within the midpole of the left kidney. There are 2-3 mm nonobstructing stones within the upper and lower poles of the right kidney. No ureteral stones are identified and there is no hydroureteronephrosis of either kidney or renal collecting system. BLADDER: Unremarkable. GASTROINTESTINAL TRACT: Normal anatomic orientation of the stomach relative to the duodenum. Normal caliber of abdominal and pelvic bowel loops, without evidence of obstruction or ileus. No circumferential bowel wall thickening with surrounding inflammatory changes to suggest an underlying infectious or inflammatory enterocolitis. Normal-appearing appendix within the right lower quadrant of the abdomen. No organizing intra-abdominal fluid collections or free intraperitoneal air. ABDOMINAL WALL: Small fat-containing umbilical hernia. LYMPH NODES: No significant abdominal or pelvic adenopathy. VASCULAR: Patent abdominal vasculature. Normal course and caliber of the abdominal aorta and its branching vessels, without aneurysmal dilatation. PELVIC VISCERA: Unremarkable. OSSEOUS STRUCTURES: No acute osseous abnormality. Normal alignment of the thoracolumbar spine. No visible destructive osseous lesions. IMPRESSION: No acute findings within the abdomen or pelvis to explain patient symptomatology. There is nephrolithiasis of the bilateral kidneys, with several subcentimeter nonobstructing stones identified within both kidneys. No ureteral or bladder stones are identified and there is no hydroureteronephrosis of either kidney or renal collecting system.
[2017-01-25 23:19] VITALS: BP 136/80
== END 2017-01-25 23:44 ==
LOC: ERH 20:22
PROVIDERS: Physician Assistant Medical
DX: R10.33 Periumbilical pain (principal)
CPT/HCPCS: 74177; 93005; 93010; 96374; J1885

== ENCOUNTER 2017-02-14 19:34 | Emergency (ER) | payer OTHER ==
[~2017-02-14] VITALS: Ht 170.2 cm; Wt 78.0 kg
[2017-02-14 20:05] VITALS: BP 109/75
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
[2017-02-14 22:06] LABS: ABSOLUTE BASOPHIL COUNT 0 /CUMM (0.0-0.2); ABSOLUTE EOSINOPHIL COUNT 0.2 /CUMM (0.0-0.7); ABSOLUTE GRANULOCYTE CT 4.1 /CUMM (1.4-6.5); ABSOLUTE LYMPH COUNT 2.7 /CUMM (1.2-3.4); ABSOLUTE MONOCYTE COUNT 0.8 /CUMM (0.10-0.60); BASOPHIL % 0.5 % (0.0-2.0); EOSINOPHIL % 2.6 % (0-5); GRANULOCYTE % 52.3 % (42.2-75.2); HEMATOCRIT 41.4 % (42-52); MEAN CORPUSCULAR VOLUME 88.3 FL (80.0-94.0); MEAN PLATELET VOLUME 9.4 FL (7.4-10.4); PLATELET COUNT 225 /CUMM (130-400); RBC DISTRIBUTION WIDTH 13.6 % (11.5-14.5); RED BLOOD CELL CT 4.69 /CUMM (4.70-6.10); WHITE BLOOD CELL COUNT 7.8 /CUMM (4.8-10.8)
--- NOTE | 2017-02-14 22:11 | CT SCAN REPORT ---
EXAMINATION: CT ABDOMEN AND PELVIS WITHOUT CONTRAST CLINICAL INFORMATION: Status post fall. Bilateral abdominal pain. COMPARISON: 01/25/2017 TECHNIQUE: Multidetector volumetric imaging was performed from the superior aspect of the liver through the pubic symphysis. Sagittal and coronal reformatted images were obtained on the technologist's workstation. DLP: 403 mGy-cm FINDINGS: LUNG BASES: Minimal bibasilar atelectasis. The visualized cardiac structures are unremarkable. LIVER, GALLBLADDER, AND BILIARY TREE: The liver is normal in size, shape, and attenuation. Unchanged 2.2 cm cyst in segment 6 of the liver. No solid hepatic lesion or biliary ductal dilatation is present. The gallbladder is unremarkable with no evidence of radiopaque gallstones, gallbladder wall thickening, or obvious pericholecystic inflammatory changes. PANCREAS: Unremarkable. SPLEEN: Unremarkable. ADRENAL GLANDS: Unremarkable. KIDNEYS AND URETERS: The kidneys are normal in size, shape, and attenuation. No hydronephrosis or hydroureter. 0.2 cm right midpole renal calculus is 10.5 cm from the posterior axillary line. 0.3 cm left midpole calculus is 10.5 cm from the posterior axillary line. Symmetric perinephric stranding is unchanged. BLADDER: Unremarkable. GASTROINTESTINAL TRACT: The stomach and small bowel are unremarkable. No dilated loops of bowel or evidence of obstruction. Normal appendix. No colonic wall thickening or inflammatory change. No free air or free fluid. ABDOMINAL WALL: No significant hernia is appreciated. LYMPH NODES: Normal. VASCULAR: Unremarkable. PELVIC VISCERA: The prostate and seminal vesicles are unremarkable. OSSEOUS STRUCTURES: No acute or suspicious osseous abnormality. Vertebral body height and alignment is maintained. Mild multilevel degenerative changes of the spine. Grade 1 anterolisthesis of L5 on S1 with bilateral pars defects at L5. The hips are intact. The lower ribs are intact. IMPRESSION: No acute traumatic finding of the abdomen or pelvis. Nonobstructive bilateral renal calculi. Stable appearance of bilateral perinephric stranding.
== END 2017-02-14 22:45 ==
LOC: ERH 19:34
PROVIDERS: Emergency Medicine
DX: S09.90XA Unspecified injury of head, initial encounter (principal); S16.1XXA Strain of muscle, fascia and tendon at neck level, initial encounter; W19.XXXA Unspecified fall, initial encounter; Y92.9 Unspecified place or not applicable; Y93.9 Activity, unspecified
CPT/HCPCS: 74176; 81003

== ENCOUNTER 2017-04-11 08:07 | Emergency (ER) | payer OTHER ==
[~2017-04-11] VITALS: Ht 170.2 cm; Wt 81.6 kg
[~2017-04-11 08:07] MED LIST changes: +NALTREXONE HCL50 M1 PO; -NALTREXONE50 MG PO; +VALTREX1000 MG PO; +VIBRAMYCIN100 MG PO
--- NOTE | 2017-04-11 08:38 | ED GENERAL ADULT ---
History of Present Illness General Chief Complaint: General Adult Stated Complaint: COLD SORE ON LIP,SWOLLEN NECK,+V,CHILLS Source: patient Exam Limitations: poor historian Vital Signs & Intake/Output Vital Signs & Intake/Output Vital Signs Date Time Temp Pulse Resp B/P B/P Pulse O2 O2 Flow FiO2 Mean Ox Delivery Rate 04/11 0942 98.7 80 20 127/84 100 Room Air 04/11 0920 98.0 85 16 126/58 95 Room Air 04/11 0812 97.0 86 20 127/87 94 Room Air Allergies Coded Allergies: strawberry (Intermediate, RASH 01/25/17) Reconcile Medications Cholecalciferol (Vitamin D3) (Vitamin D3) 2,000 UNIT CAPSULE 1 TAB PO D SUPPLEMENT (Reported) Citalopram Hydrobromide (Celexa) 40 MG TABLET 1 TAB PO D PAIN CONTROL ( Reported) Doxycycline Hyclate (Vibramycin) 100 MG CAPSULE 1 CAP PO BID infection lip Folic Acid/Mv,Fe,Other Min (Centrum Chewable Tablet) 0.4 MG-18 MG-3,500 UNIT TAB.CHEW 1 TAB PO D VITAMIN SUPPORT (Reported) Gemfibrozil (Lopid) 600 MG TABLET 1 TAB PO BID CHOLESTEROL (Reported) Levothyroxine Sodium (Synthroid) 50 MCG TABLET 1 TAB PO DAILY AC THYROID ( Reported) Metformin HCl (Metformin HCl ER) 500 MG TAB.ER.24H 1 TAB PO BID DIABETES ( Reported) Naltrexone HCl 50 MG TABLET 1 TAB PO DAILY MENTAL HEALTH (Reported) Omeprazole Magnesium (Prilosec Otc) 20 MG TABLET.DR 1 TAB PO DAILY GERD Perphenazine 2 MG TABLET 1 TAB PO QPM MENTAL HEALTH (Reported) Pravastatin Sodium 20 MG TABLET 1 TAB PO DAILY CHOLESTEROL (Reported) Promethazine HCl 12.5 MG TABLET 1 TAB PO Q6-8 PRN NAUSEA/VOMITING (Reported) Valacyclovir HCl (Valtrex) 1,000 MG TABLET 1 TAB PO BID herpes virus infection Triage Note: PT TO ED C/O VOMITING, CHILLS AND SWELLING TO LEFT SIDE OF NECK. PT WAS SEEN IN ED 04/09, SENT HOME WITH VALTREX AND VIBRAMYCIN FOR A COLD SORE. PT HAS BEEN TAKING BOTH MEDS SINCE MONDAY WITH NO PROBLEM. PT TOOK BOTH MEDS THIS AM AND BEGAN TO VOMIT. STATES PT ALSO HAS SOME SWELLING TO LEFT SIDE OF NECK. AFEBRILE. C/O ABD PAIN FROM VOMITING. Triage Nurses Notes Reviewed? yes Onset: Abrupt Duration: hour(s): Timing: recent history HPI: 04/11/17 10 AM 62-year-old male presents with nausea and vomiting. The patient had been started on doxycycline and Valtrex for a lip lesion. The lip lesion is much better but this morning when he took the doxycycline he vomited. He denies any abdominal pain or other complaints and feels better now. He does have a history of diabetes. The onset of the symptoms was abrupt, the duration was just today, the severity was significant; as his symptoms required him to come to the emergency department for care. Past History Travel History Traveled to [place] past 21 day No Medical History Any Pertinent Medical History? 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 Hx Contributory? No Review of Systems Review of Systems Constitutional: Reports: no symptoms. EENTM: Reports: see HPI. Respiratory: Reports: no symptoms. Cardiovascular: Reports: no symptoms. GI: Reports: vomiting. Denies: abdominal pain. Genitourinary: Reports: no symptoms. Musculoskeletal: Reports: no symptoms. Skin: Reports: no symptoms. Neurological/Psychological: Reports: no symptoms. Hematologic/Endocrine: Reports: no symptoms. Immunologic/Allergic: Reports: no symptoms. All Other Systems: Reviewed and Negative Physical Exam Physical Exam General Appearance: alert, awake, anxious Head: atraumatic Eyes: Bilateral: normal appearance, PERRL, EOMI. Ears, Nose, Throat: LIP UCLERATION, CLEAN , DRY, NOT INFECTED Neck: normal inspection, supple Respiratory: normal breath sounds, chest non-tender, no respiratory distress Cardiovascular: regular rate/rhythm Peripheral Pulses: 4+ radial (R), 4+ radial (L) Gastrointestinal: soft, non-tender Back: normal inspection Extremities: normal inspection Neurologic/Psych: no motor/sensory deficits, awake, alert, oriented x 3 Skin: intact, normal color, warm/dry Core Measures ACS in differential dx? No CVA/TIA Diagnosis: No Severe Sepsis Present: No Septic Shock Present: No Progress Differential Diagnoses I considered the following diagnoses in my evaluation of the patient: [Advesre drug reaction, gastroenteritis, cholecystitis, appendicitis, pancreatitis, DKA] Plan of Care: Orders Procedure Date/time Status COMPREHENSIVE METABOLIC PANEL 04/11 08 Complete CBC WITHOUT DIFFERENTIAL 04/11 852 Complete Laboratory Tests 04/11/17 0900: Anion Gap 12, Estimated GFR > 60, BUN/Creatinine Ratio 16.3, Glucose 131 H, Calcium 9.4, Total Bilirubin 0.7, AST 27, ALT 43, Alkaline Phosphatase 67, Total Protein 7.4, Albumin 4.7, Globulin 2.7, Albumin/Globulin Ratio 1.7, CBC w Diff NO MAN DIFF REQ, RBC 4.48 L, MCV 89.1, MCH 29.5, RDW 13.7, MPV 9.6, Gran % 71.5 , Lymphocytes % 18.5 L, Monocytes % 7.8, Eosinophils % 1.7, Basophils % 0.5, Absolute Granulocytes 5.4, Absolute Lymphocytes 1.4, Absolute Monocytes 0.6, Absolute Eosinophils 0.1, Absolute Basophils 0, PUBS MCHC 33.2 Initial ED EKG: none Departure Departure Disposition: HOME OR SELF CARE Condition: Stable Clinical Impression Primary Impression: Adverse drug reaction Referrals: RHODA GUILLEN,TESSA Rubio (PCP/Family) Departure Forms: Customer Survey General Discharge Information Comments 04/11/17 11:20 am Labs essentially unremarkable. Abdomen is soft and nontender. No vomiting in the ED; he was discharged and will follow-up with his doctor in the next 72 hours or return to the emergency department if worse. Critical Care Note Critical Care Note Critical Care Time: non-applicable
[2017-04-11] MEDS ORDERED: PROMETHAZINE12.5 M2 PO (09:08)
[2017-04-11 09:42] VITALS: BP 127/84
[2017-04-11 09:42] LABS: ABSOLUTE BASOPHIL COUNT 0 /CUMM (0.0-0.2); ABSOLUTE EOSINOPHIL COUNT 0.1 /CUMM (0.0-0.7); ABSOLUTE GRANULOCYTE CT 5.4 /CUMM (1.4-6.5); ABSOLUTE LYMPH COUNT 1.4 /CUMM (1.2-3.4); ABSOLUTE MONOCYTE COUNT 0.6 /CUMM (0.10-0.60); BASOPHIL % 0.5 % (0.0-2.0); EOSINOPHIL % 1.7 % (0-5); GRANULOCYTE % 71.5 % (42.2-75.2); HEMATOCRIT 39.9 % (42-52); MEAN CORPUSCULAR HGB 29.5 PG (27.0-31.0); MEAN CORPUSCULAR HGB CONC 33.2 G/DL (33.0-37.0); MEAN CORPUSCULAR VOLUME 89.1 FL (80.0-94.0); MEAN PLATELET VOLUME 9.6 FL (7.4-10.4); PLATELET COUNT 199 /CUMM (130-400); RBC DISTRIBUTION WIDTH 13.7 % (11.5-14.5); RED BLOOD CELL CT 4.48 /CUMM (4.70-6.10); WHITE BLOOD CELL COUNT 7.6 /CUMM (4.8-10.8)
== END 2017-04-11 10:15 ==
LOC: ERH 08:07
PROVIDERS: Emergency Medicine
DX: T36.4X5A Adverse effect of tetracyclines, initial encounter (principal); R11.2 Nausea with vomiting, unspecified
CPT/HCPCS: 96360

== ENCOUNTER 2018-01-21 19:31 | Emergency (ER) | payer OTHER ==
[~2018-01-21] VITALS: Ht 170.2 cm; Wt 78.0 kg
[2018-01-21 19:34] VITALS: BP 136/88
--- NOTE | 2018-01-21 19:41 | ED GENERAL ADULT ---
History of Present Illness General Chief Complaint: General Adult Stated Complaint: "DIABETIC, OPEN SORE ON HEAD W/ DISCHARGE" Source: patient, family Exam Limitations: no limitations Vital Signs & Intake/Output Vital Signs & Intake/Output Vital Signs Date Time Temp Pulse Resp B/P B/P Pulse O2 O2 Flow FiO2 Mean Ox Delivery Rate 01/21 1947 98 Room Air 01/21 1934 96.2 78 18 136/88 98 Room Air Allergies Coded Allergies: strawberry (Intermediate, RASH 08/26/17) Reconcile Medications Cholecalciferol (Vitamin D3) (Vitamin D3) 2,000 UNIT CAPSULE 1 TAB PO D SUPPLEMENT (Reported) Citalopram Hydrobromide (Celexa) 40 MG TABLET 1 TAB PO D PAIN CONTROL ( Reported) Folic Acid/Mv,Fe,Other Min (Centrum Chewable Tablet) 0.4 MG-18 MG-3,500 UNIT TAB.CHEW 1 TAB PO D VITAMIN SUPPORT (Reported) Gemfibrozil (Lopid) 600 MG TABLET 1 TAB PO BID CHOLESTEROL (Reported) Ibuprofen 800 MG TABLET 1 TAB PO TID PRN pain Levothyroxine Sodium (Synthroid) 50 MCG TABLET 1 TAB PO DAILY AC THYROID ( Reported) Metformin HCl (Metformin HCl ER) 500 MG TAB.ER.24H 1 TAB PO TID DIABETES ( Reported) Naltrexone HCl 50 MG TABLET 1 TAB PO DAILY MENTAL HEALTH (Reported) Perphenazine 2 MG TABLET 1 TAB PO QPM MENTAL HEALTH (Reported) Pravastatin Sodium 20 MG TABLET 1 TAB PO DAILY CHOLESTEROL (Reported) Promethazine HCl 12.5 MG TABLET 1 TAB PO Q6-8 PRN NAUSEA/VOMITING (Reported) Triage Note: PT FROM HOME C/O "PIMPLE/SUPERFICIAL ABRASION" TO THE TOP OF PTS HEAD. PTS VSS. PT STATES "IT GOT SO ITCHY I JUST HAD TO SCRATCH IT, I GOT IT A COUPLE OF DAYS AGO, BUT TODAY IS WHEN I NOTICED I SCRATCHED IT" PTS REPORT OOZING AND BLOOD COMING FROM "[facility]". PTS CONCERNED D/T TO PT BEING DIABETIC "I THINK HE MIGHT NEED ANTIBIOTICS. Triage Nurses Notes Reviewed? yes Onset: Abrupt Duration: day(s): Timing: recent history Injury Environment: home Severity: mild Associated Symptoms: abrasion to scalp HPI: 63 yo gentleman h/o diabetes, presents with an abrasion to his occiput. He expresses concern due to his diabetes. He is uncertain how he incurred the abrasion. It is not tender, no discharge, no headache or fever. He is otherwise well. Past History Travel History Traveled to [place] past 21 day No Medical History Any Pertinent Medical History? see below for history Neurological: TIA EENT: NONE Cardiovascular: hypertension, hyperlipidemia Respiratory: NONE Gastrointestinal: NONE Hepatic: NONE Renal: NONE Musculoskeletal: NONE Psychiatric: bipolar disease, depression, schizo affective disorder, MANIC DEPRESSIVE Endocrine: diabetes, hypopituitarism Blood Disorders: NONE Cancer(s): NONE [employer]ATOR/Reproductive: NONE History of MRSA: No History of VRE: No History of CDIFF: No Surgical History Surgical History: LIPOMA RESECTION Psychosocial History Who do you live with Family Services at Home None What is your primary language Welsh Tobacco Use: Quit >30 days ago Family History Family History, If Any: FATHER, ; Cause: Stroke. Hx Contributory? No Review of Systems Review of Systems Constitutional: Reports: no symptoms. EENTM: Reports: no symptoms. Respiratory: Reports: no symptoms. Cardiovascular: Reports: no symptoms. GI: Reports: no symptoms. Genitourinary: Reports: no symptoms. Musculoskeletal: Reports: no symptoms. Skin: Reports: no symptoms. Neurological/Psychological: Reports: no symptoms. Hematologic/Endocrine: Reports: no symptoms. Immunologic/Allergic: Reports: no symptoms. All Other Systems: Reviewed and Negative Physical Exam Physical Exam General Appearance: well developed/nourished, no apparent distress Head: 1x1 cm superficial abrasion in the superior aspect of his occiput, without sign of infection Eyes: Bilateral: normal appearance. Ears, Nose, Throat: normal pharynx Neck: normal inspection Respiratory: no respiratory distress Extremities: normal inspection Neurologic/Psych: no motor/sensory deficits, awake, alert, oriented x 3 Skin: intact Core Measures ACS in differential dx? No CVA/TIA Diagnosis: No Sepsis Present: No Sepsis Focused Exam Completed? No Progress Differential Diagnoses I considered the following diagnoses in my evaluation of the patient: abrasion vs other Plan of Care: discussed local care- bacitracin - each day and close follow up. Initial ED EKG: none Departure Departure Disposition: HOME OR SELF CARE Condition: Stable Clinical Impression Primary Impression: Abrasion Referrals: Tiff GUILLEN,Bonita Rubio (PCP/Family) Departure Forms: Customer Survey General Discharge Information Critical Care Note Critical Care Note Critical Care Time: non-applicable
== END 2018-01-21 19:43 ==
LOC: ERH 19:31
DX: S00.01XA Abrasion of scalp, initial encounter (principal); X58.XXXA Exposure to other specified factors, initial encounter; Y92.9 Unspecified place or not applicable; Y93.9 Activity, unspecified